=== PATIENT | female | born 1990 | race Caucasian/White ===

== ENCOUNTER → 2017-10-24 10:39 | Outpatient (CLI) | payer OTHER, SELFPAY ==
[2017-10-24 11:36] LABS: Absolute Lymphocyte Count 1.27 X10^3/ul (0.83-4.51); Absolute Neutrophil Count 8.2 X10^3/uL (2.0-7.7); Basophil# 0.01 X10^3/uL; Basophil% 0.1 % (0-1); Eosinophil# 0.07 X10^3/uL; Eosinophils% 0.7 % (0-5); Hematocrit 36.4 % (37-47); Hemoglobin 12.2 g/dl (12.0-15.0); Lymphocyte # 1.27 X10^3/ul (4.0); Lymphocyte % 12.7 % (19-41); Mean Corp Hgb Conc 33.5 g/gl (32-36); Mean Corpuscular Hgb 31.8 pg (27.0-32.0); Mean Corpuscular Volume 94.8 fL (81-99); Mean Platelet Vol. 8.7 fl (6.2-12.0); Monocyte# 0.49 X10^3/uL; Monocyte% 4.9 % (0-10); Neutrophil # 8.17 X10^3/uL (2.7-7.7); Neutrophil % 81.4 % (47-70); POSITIVE COUNT NO; POSITIVE DIFFERENTIAL NO; POSITIVE MORPHOLOGY NO; Platelet Count 303 K/mm3 (150-450); RBC Distribution Width CV 13.6 % (11.6-14.6); RBC Distribution Width SD 46.8 fl (35.1-43.9); Red Blood Count 3.84 M/mm3 (4.2-5.4)
[2017-10-24 12:04] LABS: Glucose Challenge Gest 1H 50g 160 mg/dL (70-140)
== END ==
PROVIDERS: Visit Provider Obstetrics & Gynecology
DX: Z34.02 Encounter for supervision of normal first pregnancy, second trimester (principal)
CPT/HCPCS: 36415; 82950; 85025

== ENCOUNTER → 2017-10-28 06:53 | Outpatient (CLI) | payer OTHER, SELFPAY ==
[2017-10-28 08:42] LABS: Glucose GTT-Gestation. Fasting 66 mg/dL (<105)
[2017-10-28 08:44] LABS: Glucose GTT-Gestational 1 Hr 145 mg/dL (<190)
[2017-10-28 10:29] LABS: Glucose GTT-Gestational 2 Hr 147 mg/dL (<165)
[2017-10-28 11:36] LABS: Glucose GTT-Gestational 3 Hr 125 L (<145)
== END ==
PROVIDERS: Visit Provider Obstetrics & Gynecology
DX: R73.09 Other abnormal glucose (principal)
CPT/HCPCS: 36415; 82951; 82952

== ENCOUNTER → 2017-11-14 11:58 | Outpatient (CLI) | payer OTHER, SELFPAY | PROVIDERS: Visit Provider Obstetrics & Gynecology | DX: Z34.90 Encounter for supervision of normal pregnancy, unspecified, unspecified trimester (principal); Z71.89 Other specified counseling | CPT/HCPCS: 36415 ==

== ENCOUNTER → 2017-12-12 17:36 | Outpatient (CLI) | payer OTHER, SELFPAY | PROVIDERS: Visit Provider Obstetrics & Gynecology | DX: L29.8 Other pruritus (principal) | CPT/HCPCS: 87070; 87106; 87205 ==

== ENCOUNTER → 2017-12-19 14:00 | Outpatient (CLI) | payer OTHER, SELFPAY ==
[2017-12-19 16:32] LABS: Group B Strep DNA By PCR Negative (Negative); Internal Control PASS; Probe Check PASS; Specimen Processing Control PASS
== END ==
PROVIDERS: Visit Provider Obstetrics & Gynecology
DX: Z34.90 Encounter for supervision of normal pregnancy, unspecified, unspecified trimester (principal)
CPT/HCPCS: 87081; 87653

== ENCOUNTER → 2017-12-26 10:47 | Outpatient (CLI) | payer OTHER, SELFPAY ==
--- NOTE | 2017-12-26 10:48 | US_ITS ---
STUDY: SECOND AND THIRD TRIMESTER OBSTETRICAL ULTRASOUND - LIMITED REASON FOR EXAM: Female, 27 years old. Routine survey. LMP: April 12, 2017. PRIOR ULTRASOUND: Comparison is made with prior examination dated August 28, 2017. TECHNIQUE: Transabdominal and transvaginal ultrasound evaluation was performed. FINDINGS: There is a single intrauterine fetus. The fetus is in a cephalic presentation. There is demonstrated cardiac activity with a heart rate of 156 bpm. There is a normal amniotic fluid volume. The largest amniotic fluid pocket measures 3.1 cm x 5.2 cm. The amniotic fluid index (PRESTON) is 10.2 cm. The placenta is posterior in location and is not low lying. There are Grade 3 placental changes. The cervix measures 2.5 cm in length. BIOMETRY: BPD: 9.0 cm: 36 weeks, 5 days HC: 32.3 cm: 36 weeks, 4 days AC: 32.5 cm: 36 weeks, 4 days FL: 7.0 cm: 35 weeks, 6 days Age by LMP: 36 weeks, 6 days. LIONEL by LMP: January 17, 2018. age by prior US: 37 weeks, 2 days. LIONEL by prior US: January 14, 2018. age by current US: 36 weeks, 3 days. LIONEL by current US: January 20, 2018. Estimated weight: 2907 grams, +/- 424 grams, 40 percentile. Gender: Indeterminant US/OB Limited With Biometrics IMPRESSION: Single live intrauterine gestation with a mean gestational age of 37 weeks and 2 days. The measurements obtained today fall within normal expected range. Electronically Signed: Avni Ladd MD at 12:47 EDT Tel [phone], Service support ,
== END ==
PROVIDERS: Visit Provider Obstetrics & Gynecology
DX: Z34.02 Encounter for supervision of normal first pregnancy, second trimester (principal)
CPT/HCPCS: 76816

== ENCOUNTER → 2017-12-26 14:09 | Outpatient (CLI) | payer OTHER, SELFPAY ==
[2017-12-26 14:30] LABS: Protein, Urine (Random) 19.3 mg/dL (<11.9); Protein:Creat Ratio 242 mg/g CRE (0-200)
== END ==
PROVIDERS: Visit Provider Obstetrics & Gynecology
DX: Z34.90 Encounter for supervision of normal pregnancy, unspecified, unspecified trimester (principal)
CPT/HCPCS: 82570; 84156

== ENCOUNTER 2017-12-28 12:10 | Outpatient (CLI) | payer OTHER, SELFPAY ==
[2017-12-28 12:19] VITALS: BMI 29.9
[2017-12-28 13:05] LABS: ROM Internal Control Test YES-OK TO RESULT pt. (Internal QC); ROM Patient Test Negative (Negative)
[2017-12-28 13:09] VITALS: BP 131/74; PULSE 95; RESP 18; TEMP 37.2; O2SAT 98
--- NOTE | 2017-12-29 05:34 | OB.TRI.NOTE ---
History of Present Illness Date of Service: 12/28/17 Was patient seen by the physician?: No Reason For Visit: R/O RUPTURE Date of Service: 12/28/17 Gestational age: 37 weeks History of Present Illness: questionable ROM Home Medications Medication Instructions Recorded calcium carbonate 500 mg calcium 500 mg PO BID tab 08/28/17 (1,250 mg) tablet 1 tab PO QDAY 08/28/17 vitamin,calcium,djedbvxa-wegm-wadsy acid tablet Allergies lactase [From Dairy Aid] Allergy (Mild, Verified 12/26/17 09:56) Unknown gluten Allergy (Verified 12/26/17 09:56) Unknown Physical Exam Vitals: Vital Signs Temp Pulse Resp BP Pulse Ox 99.0 F 95 18 131/74 H 98 12/28/17 13:09 12/28/17 13:09 12/28/17 13:09 12/28/17 13:09 12/28/17 13:09 NST - FHR Rate Baby A Baseline: 130-140 Variability:: Moderate Accelerations:: 15 x 15 Decelerations:: None NST Reactive:: Yes FHR Category:: Category I Uterine Activity:: no rgular Impression/Plan negative rom plus dc home labor precautions
== END 2017-12-28 13:30 | disposition home or self-care (01) ==
LOC: WPOUT 12:16 → WP 12:17
PROVIDERS: Visit Provider Obstetrics & Gynecology
DX: O47.1 False labor at or after 37 completed weeks of gestation (principal); Z3A.37 37 weeks gestation of pregnancy
CPT/HCPCS: 59025; 84112; 99218; G0378

== ENCOUNTER 2018-01-09 11:35 | Inpatient (IN) | payer OTHER, SELFPAY ==
[2018-01-09 10:49] VITALS: BMI 29.9
[2018-01-09 10:52] LABS: Protein, Urine (Random) 36.3 mg/dL (<11.9); Protein:Creat Ratio 231 mg/g CRE (0-200)
[2018-01-09 11:28] LABS: Absolute Lymphocyte Count 1.22 X10^3/ul (0.83-4.51); Absolute Neutrophil Count 8.3 X10^3/uL (2.0-7.7); Basophil# 0.01 X10^3/uL; Basophil% 0.1 % (0-1); Eosinophil# 0.04 X10^3/uL; Eosinophils% 0.4 % (0-5); Hematocrit 37.3 % (37-47); Hemoglobin 12.8 g/dl (12.0-15.0); Lymphocyte # 1.22 X10^3/ul (4.0); Lymphocyte % 11.8 % (19-41); Mean Corp Hgb Conc 34.3 g/gl (32-36); Mean Corpuscular Hgb 32.1 pg (27.0-32.0); Mean Corpuscular Volume 93.5 fL (81-99); Mean Platelet Vol. 9.7 fl (6.2-12.0); Monocyte# 0.76 X10^3/uL; Monocyte% 7.3 % (0-10); Neutrophil # 8.33 X10^3/uL (2.7-7.7); Neutrophil % 80.2 % (47-70); Platelet Count 305 K/mm3 (150-450); RBC Distribution Width CV 13.8 % (11.6-14.6); RBC Distribution Width SD 45.2 fl (35.1-43.9); Red Blood Count 3.99 M/mm3 (4.2-5.4); White Blood Count 10.4 K/mm3 (4.4-11.0)
[2018-01-09 11:34] LABS: ROM Internal Control Test YES-OK TO RESULT pt. (Internal QC)
[2018-01-09 11:36] LABS: ROM Patient Test POSITIVE (Negative)
[2018-01-09 11:36] LABS: POSITIVE COUNT NO; POSITIVE DIFFERENTIAL NO; POSITIVE MORPHOLOGY NO
[2018-01-09 11:59] LABS: ALB/GLOB Ratio 0.6 RATIO (0.9-2.4); AST(SGOT) 13 U/L (15-37); Alanine Aminotransfer ALT/SGPT 12 U/L (13-56); Albumin, Serum 2.4 g/dL (3.2-5.0); Alkaline Phosphatase 135 U/L (45-117); Anion Gap 9 (5-15); BUN 7 mg/dL (7-18); BUN/Creat Ratio 8.3 RATIO (10-20); Calcium,Total 8.8 mg/dL (8.5-10.1); Chloride 104 mmol/L (98-107); Creatinine, Serum 0.84 mg/dL (0.55-1.02); EST Glomerular Filtration Rate 84 mL/min (>60); Est Glom Filt Rate - Afr Amer 102 mL/min (>60); Estimated Creatinine Clearance 88.92 ml/min; Globulin 4.3 g/dL (2.2-4.2); Glucose 109 mg/dL (74-106); LDH 134 U/L (84-246); Potassium 3.4 mmol/L (3.5-5.1); Protein, Total 6.7 g/dL (6.4-8.2); Sodium Level 136 mmol/L (136-145)
[2018-01-09] MEDS: Lactated Ringers 1,000 ML 50 ML IV ×3 (12:15→21:41)
[2018-01-09] MEDS: Oxytocin 30 units/NS 500 ml 30 UNITS/500 ML IV.SOLN IV (13:20)
--- NOTE | 2018-01-09 17:30 | PCM.PN.BLA ---
Progress Note LABOR PROGRESS NOTE Contractions intensify, but remain mild. AVSS GEN - NAD, AAO x 3 SVE deferred FHR 150, moderate variability, + accelerations, no decelerations TOCO - irregularly traced when patient walking, however 4/10 at rest A/P: 27yo G1 @ 38 6/7wga with PROM, pitocin induction, Cat I FHR -No si/sx infection -Continue pitocin as tolerated by mother and fetus
--- NOTE | 2018-01-09 17:55 | PCM.HP.STD ---
Problem List (1) 38 weeks gestation of Status: Acute (2) Rupture of membranes with clear amniotic fluid Status: Acute History of Present Illness Date of Admission: 01/09/18 Chief Complaint: Sent from office for elevated blood pressure and headache, has leaking of fluid also The patient is a 27 year old F 1 para 0 at 38 6/7 weeks gestation (LIONEL 01/17/18) by LMP 04/12/17 admitted with spontaneous rupture of membranes. She was sent from office for headache and elevated blood pressure 141/78 with trace proteinuria.. On arrival, she reported leaking of fluid with uncertain time of rupture. The ROM plus was positive. She reported mild frontal headache without vision changes, abdominal pain, shortness of breath. + FM. No vaginal bleeding. She had mild contractions. No other complaints. Allergies lactase [From Dairy Aid] Allergy (Mild, Verified 01/02/18 10:19) Unknown gluten Allergy (Verified 01/02/18 10:19) Unknown PFSH PFSH Family History Father Cancer liver Grandmother Breast cancer Social History Smoking Status: Never smoker alcohol intake: never substance use type: does not use additional social history: to S[facility] Pregancy History 1 Elective abortions Hx Para Spontaneous abortions Hx # Term Pregnancies Ectopic pregnancies Hx # Pregnancies Multiple births # of living children Labs Diagnostics Labs Obstetrics Ultrasound 12/26/17 - EFW 2901g Group B Strep DNA Negative (Negative) 12/19/17 HIV non-reactive RPR non-reactive HBsAg neg Gonorrhea neg Chlamydia neg Rubella immune OB History - copied from office chart LIONEL Calculator Estimated Delivery Date 01/17/18 Based on LMP (certain) 04/12/17 Current WG 38w 6d Number 1 Expected Delivery Route/Plan Specific Issue/Plans Mini chart given Declines flu vaccine larc form signed labor support person: moms and sasha (rupinder ordonez) pain management: minimal intervention cut cord/dad catch: yes yes : yes control planned: undecided special requests: Last Menstral Period: 04/12/17 Zika: Travel to [facility]. Zika virus screening: Negative : No Initial Weight: Not Recorded Date EGA Weight BP Urine Prot Glucose FHR FuHt Pres Mov CTX Dilation Effaced St Visit Note Provider Comments 12/21/17 19w 5d 154 lb 8 oz 110/67 Negative Negative 146 Absent absent Doing well some heartburn. Anatomy US today 09/26/17 23w 6d 159 lb 4 oz 124/69 Negative Negative 145 24 Active absent Doing well some heartburn. Anatomy US today doing well no complaints 10/24/17 27w 6d 167 lb 4 oz 118/66 140 28 Active absent Doing well some heartburn. Anatomy US today no vb lof good fm no regular ctx planning travel [place]- discussed with patient zika avoidance 11/14/17 30w 6d 167 lb 130/70 135 30 Active absent no vb lof good fm no regular ctx planning travel [place]- discussed with patient zika avoidance no vb lof good fm no regular ctx. no symptoms of zika but discussed and wishes testing since travel to endemic area. 11/28/17 32w 6d 169 lb 6 oz 112/69 Negative Negative 135 33 Active absent no vb lof good fm no regular ctx planning travel [place]- discussed with patient zika avoidance no vb lof good fm no regualr ctx 12/12/17 34w 6d 174 lb 136/78 Trace Negative 145 35 Cephalic absent 0 no vb lof good fm no regular ctxco increased itching and discharge. co sciatic pain and pelvic discomfort at times 12/19/17 35w 6d 175 lb 2 oz 127/70 130 36 Cephalic Active absent 0 no vb lof good fm no regualr ctx but had some cramping last night 12/26/17 36w 6d 178 lb 8 oz 120/68 160 36 Cephalic Active absent 1 0 no vb lof good fm no egular ctx 01/02/18 37w 6d 179 lb 4 oz 133/84 Trace Negative 143 37 Cephalic Active occasional 1.30 -4 Occa CTX, No LOF, VB. Good FM 01/09/18 38w 6d 180 lb 2 oz 141/78 Trace 100 g/dL occasional Past Medical History Allergies lactase [From Dairy Aid] Allergy (Mild, Verified 01/09/18 10:51) Unknown gluten Allergy (Verified 01/09/18 10:51) Unknown Home Medications: Ambulatory Orders Medication Instructions Recorded 1 tab PO QDAY 08/28/17 vitamin,calcium,vfiyvghy-oqmw-orjfk acid tablet diphenhydramine 25 mg capsule 25 mg PO QHS PRN 01/09/18 famotidine 20 mg tablet 20 mg PO QDAY 01/09/18 Surgical History: no surgical history Psychiatric History: No pertinent psych hx Smoking Status: Never smoker Review of Systems Constitutional: Denies: Chills, Fever Eyes: Denies: Blurred vision, Vision Change Cardiovascular: Denies: Chest Pain, Edema Respiratory: Denies: Shortness of Breath Gastrointestinal: Denies: Abdominal Pain, Nausea, Vomiting Gynecological: Denies: Vaginal bleeding Neurological: Reports: Headaches VTE Information - Inpt Only VTE Present on Admission: No Patient Problems: Active and Suspected Problems (Last Reviewed 01/09/18 @ 10:10 by Gabby Holland) 38 weeks gestation of (Acute) Rupture of membranes with clear amniotic fluid (Acute) Objective: AVSS - Physical Exam General: Alert, Oriented x3, Cooperative, No apparent distress HEENT: Atraumatic, Normocephalic Lungs: Normal air movement Abdomen: Soft, Non Tender, Non-Distended, Gravid Extremities: No Calf Tenderness, - - trace LE edema Skin: No rashes Neurological: Neuro grossly intact, - - +1 b/l DTRs Psych/Mental Status: Normal Affect, Appropriate, Alert and oriented to time, place, person, mood and affect Weight: 81.6 kg Body Mass Index (BMI) 29.9 Intake and Output for Last 24 Hours 01/07/18 01/08/18 01/09/18 23:59 23:59 23:59 Intake Total 400 / 400 Output Total 301 / 301 Balance 99 / 99 Laboratory Tests Past 24 Hrs 01/09/18 01/09/18 01/09/18 10:00 10:00 11:10 WBC 10.4 RBC 3.99 L Hgb 12.8 Hct 37.3 MCV 93.5 MCH 32.1 H MCHC 34.3 RDW 13.8 RDW Differential 45.2 H Plt Count 305 MPV 9.7 Immature Gran % (Auto) 0.200 Neut % (Auto) 80.2 H Lymph % (Auto) 11.8 L [place] % (Auto) 7.3 Eos % (Auto) 0.4 Baso % (Auto) 0.1 Absolute Neuts (auto) 8.3 H Absolute Lymphs (auto) 1.22 Total Counted Not Reportable Sodium Potassium Chloride Carbon Dioxide Anion Gap BUN Creatinine Estim Creat Clear Calc Est GFR (MDRD) Af Amer Est GFR (MDRD) Non-Af BUN/Creatinine Ratio Glucose Uric Acid Calcium Total Bilirubin AST ALT Alkaline Phosphatase Lactate Dehydrogenase Total Protein Albumin Globulin Albumin/Globulin Ratio U Random Total Protein 36.3 H Cancelled Urine Creatinine 157.00 Cancelled Protein/Creatinin Ratio 231 H Cancelled Vag Amniotic Fld Detect Blood Type Antibody Screen 01/09/18 01/09/18 01/09/18 11:10 11:10 11:15 WBC RBC Hgb Hct MCV MCH MCHC RDW RDW Differential Plt Count MPV Immature Gran % (Auto) Neut % (Auto) Lymph % (Auto) [place] % (Auto) Eos % (Auto) Baso % (Auto) Absolute Neuts (auto) Absolute Lymphs (auto) Total Counted Sodium 136 Potassium 3.4 L Chloride 104 Carbon Dioxide 23.0 Anion Gap 9 BUN 7 Creatinine 0.84 Estim Creat Clear Calc 88.92 Est GFR (MDRD) Af Amer 102 Est GFR (MDRD) Non-Af 84 BUN/Creatinine Ratio 8.3 L Glucose 109 H Uric Acid 6.0 Calcium 8.8 Total Bilirubin 0.20 AST 13 L ALT 12 L Alkaline Phosphatase 135 H Lactate Dehydrogenase 134 Total Protein 6.7 Albumin 2.4 L Globulin 4.3 H Albumin/Globulin Ratio 0.6 L U Random Total Protein Urine Creatinine Protein/Creatinin Ratio Vag Amniotic Fld Detect POSITIVE H Blood Type B POSITIVE Antibody Screen NEGATIVE Assessment/Plan Active and Suspected Problems (Last Reviewed 01/09/18 @ 10:10 by Gabby Holland) 38 weeks gestation of (Acute) Rupture of membranes with clear amniotic fluid (Acute) 27yo G1 @ 38 6/7wga with PROM, Cat I FHR - no evidence of preeclampsia -Admit to L&D -Clear liquids -Risks, benefits and alternatives of labor reviewed including potential for bleeding complications, possibly requiring dilation and curettage or hysterectomy, infection, internal or contractions monitoring, VTE, need for vacuum delivery or delivery with review of risks including bowel, bladder injury and scarring. Consents signed. -Recommend pitocin given unknown time of membrane rupture. Reviewed pitocin indications, how use, potential for tachysystole or tetanic contractions with FHR changes. -Pt refused headache medication reporting mild severity. Uric acid 6.0, otherwise, labs wnl. Discussed with patient exam findings and lab results not c/w preeclampsia, nor gestational HTN at this time given simgle elevated BP. Serial BPs here wnl. Sx of preeclampsia reviewed. Will monitor for emergence of preeclampsia. -GBS negative -Patient given opportunity to ask questions and questions answered to her satisfaction. -Maternal and statuses reassuring/
--- NOTE | 2018-01-09 18:05 | HP.PCM_ITS ---
Problem List (1) 38 weeks gestation of Status: Acute (2) Rupture of membranes with clear amniotic fluid Status: Acute History of Present Illness Date of Admission: 01/09/18 Chief Complaint: Sent from office for elevated blood pressure and headache, has leaking of fluid also The patient is a 27 year old F 1 para 0 at 38 6/7 weeks gestation (LIONEL ) by LMP 04/12/17 admitted with spontaneous rupture of membranes. She was sent from office for headache and elevated blood pressure 141/78 with trace proteinuria.. On arrival, she reported leaking of fluid with uncertain time of rupture. The ROM plus was positive. She reported mild frontal headache without vision changes, abdominal pain, shortness of breath. + FM. No vaginal bleeding. She had mild contractions. No other complaints. Allergies lactase [From Dairy Aid] Allergy (Mild, Verified 01/02/18 10:19) Unknown gluten Allergy (Verified 01/02/18 10:19) Unknown PFSH PFSH Family History Father Cancer liver Grandmother Breast cancer Social History Smoking Status: Never smoker alcohol intake: never substance use type: does not use additional social history: to Sasha Pregancy History 2 1 Elective abortions Hx Para Spontaneous abortions Hx # Term Pregnancies Ectopic pregnancies Hx # Pregnancies Multiple births # of living children Labs Diagnostics Labs Obstetrics Ultrasound 12/26/17 - EFW 2901g Group B Strep DNA Negative (Negative) 12/19/17 HIV non-reactive RPR non-reactive HBsAg neg Gonorrhea neg Chlamydia neg Rubella immune OB History - copied from office chart LIONEL Calculator 2 Estimated Delivery Date 01/17/18 Based on LMP (certain) 04/12/17 Current WG 38w 6d Number 1 Expected Delivery Route/Plan Specific Issue/Plans Mini chart given Declines flu vaccine larc form signed labor support person: moms and sasha (rupinder ordonez) pain management: minimal intervention cut cord/dad catch: yes yes : yes control planned: undecided special requests: Last Menstral Period: 04/12/17 Zika: Travel to [facility]. Zika virus screening: Negative : No Initial Weight: Not Recorded Date EGA Weight BP Urine Prot Glucose FHR FuHt Pres Mov CTX Dilation Effaced St Visit Note Provider Comments 08/28/17 19w 5d 154 lb 8 oz 110/67 Negative Negative 146 Absent absent Doing well some heartburn. Anatomy US today 09/26/17 23w 6d 159 lb 4 oz 124/69 Negative Negative 145 24 Active absent Doing well some heartburn. Anatomy US today doing well no complaints 10/24/17 27w 6d 167 lb 4 oz 118/66 140 28 Active absent Doing well some heartburn. Anatomy US today no vb lof good fm no regular ctx [place]- discussed with patient zika avoidance 11/14/17 30w 6d 167 lb 130/70 135 30 Active absent no vb lof good fm no regular ctx planning [place]- discussed with patient zika avoidance no vb lof good fm no regular ctx. no symptoms of zika but discussed and wishes testing since travel to endemic [place]. 11/28/17 32w 6d 169 lb 6 oz 112/69 Negative Negative 135 33 Active absent no vb lof good fm no regular ctx planning travel [place]- discussed with patient zika avoidance no vb lof good fm no regualr ctx 12/12/17 34w 6d 174 lb 136/78 Trace Negative 145 35 Cephalic absent 0 no vb lof good fm no regular ctxco increased itching and discharge. co sciatic pain and pelvic discomfort at times 12/19/17 35w 6d 175 lb 2 oz 127/70 130 36 Cephalic Active absent 0 no vb lof good fm no regualr ctx but had some cramping last night 12/26/17 36w 6d 178 lb 8 oz 120/68 160 36 Cephalic Active absent 1 0 no vb lof good fm no egular ctx 01/02/18 37w 6d 179 lb 4 oz 133/84 Trace Negative 143 37 Cephalic Active occasional 1.30 -4 Occa CTX, No LOF, VB. Good FM 01/09/18 38w 6d 180 lb 2 oz 141/78 Trace 100 g/dL occasional Past Medical History Allergies lactase [From Dairy Aid] Allergy (Mild, Verified 01/09/18 10:51) Unknown gluten Allergy (Verified 01/09/18 10:51) Unknown Home Medications: Ambulatory Orders Medication Instructions Recorded 1 tab PO QDAY 08/28/17 vitamin,calcium,efkazqgr-tudd-ufgoj acid tablet diphenhydramine 25 mg capsule 25 mg PO QHS PRN 01/09/18 famotidine 20 mg tablet 20 mg PO QDAY 01/09/18 Surgical History: no surgical history Psychiatric History: No pertinent psych hx Smoking Status: Never smoker Review of Systems Constitutional: Denies: Chills, Fever Eyes: Denies: Blurred vision, Vision Change Cardiovascular: Denies: Chest Pain, Edema Respiratory: Denies: Shortness of Breath Gastrointestinal: Denies: Abdominal Pain, Nausea, Vomiting Gynecological: Denies: Vaginal bleeding Neurological: Reports: Headaches VTE Information - Inpt Only VTE Present on Admission: No Patient Problems: Active and Suspected Problems (Last Reviewed 01/09/18 @ 10:10 by Gabby Holland) 38 weeks gestation of (Acute) Rupture of membranes with clear amniotic fluid (Acute) Objective: AVSS - Physical Exam General: Alert, Oriented x3, Cooperative, No apparent distress HEENT: Atraumatic, Normocephalic Lungs: Normal air movement Abdomen: Soft, Non Tender, Non-Distended, Gravid Extremities: No Calf Tenderness, - - trace LE edema Skin: No rashes Neurological: Neuro grossly intact, - - +1 b/l DTRs Psych/Mental Status: Normal Affect, Appropriate, Alert and oriented to time, place, person, mood and affect Weight: 81.6 kg Body Mass Index (BMI) 29.9 Intake and Output for Last 24 Hours 01/07/18 01/08/18 01/09/18 23:59 23:59 23:59 Intake Total 400 / 400 Output Total 301 / 301 Balance 99 / 99 Laboratory Tests Past 24 Hrs 01/09/18 01/09/18 01/09/18 10:00 10:00 11:10 WBC 10.4 RBC 3.99 L Hgb 12.8 Hct 37.3 MCV 93.5 MCH 32.1 H MCHC 34.3 RDW 13.8 RDW Differential 45.2 H Plt Count 305 MPV 9.7 Immature Gran % (Auto) 0.200 Neut % (Auto) 80.2 H Lymph % (Auto) 11.8 L [place] % (Auto) 7.3 Eos % (Auto) 0.4 Baso % (Auto) 0.1 Absolute Neuts (auto) 8.3 H Absolute Lymphs (auto) 1.22 Total Counted Not Reportable Sodium Potassium Chloride Carbon Dioxide Anion Gap BUN Creatinine Estim Creat Clear Calc Est GFR (MDRD) Af Amer Est GFR (MDRD) Non-Af BUN/Creatinine Ratio Glucose Uric Acid Calcium Total Bilirubin AST ALT Alkaline Phosphatase Lactate Dehydrogenase Total Protein Albumin Globulin Albumin/Globulin Ratio U Random Total Protein 36.3 H Cancelled Urine Creatinine 157.00 Cancelled Protein/Creatinin Ratio 231 H Cancelled Vag Amniotic Fld Detect Blood Type Antibody Screen 01/09/18 01/09/18 01/09/18 11:10 11:10 11:15 WBC RBC Hgb Hct MCV MCH MCHC RDW RDW Differential Plt Count MPV Immature Gran % (Auto) Neut % (Auto) Lymph % (Auto) [place] % (Auto) Eos % (Auto) Baso % (Auto) Absolute Neuts (auto) Absolute Lymphs (auto) Total Counted Sodium 136 Potassium 3.4 L Chloride 104 Carbon Dioxide 23.0 Anion Gap 9 BUN 7 Creatinine 0.84 Estim Creat Clear Calc 88.92 Est GFR (MDRD) Af Amer 102 Est GFR (MDRD) Non-Af 84 BUN/Creatinine Ratio 8.3 L Glucose 109 H Uric Acid 6.0 Calcium 8.8 Total Bilirubin 0.20 AST 13 L ALT 12 L Alkaline Phosphatase 135 H Lactate Dehydrogenase 134 Total Protein 6.7 Albumin 2.4 L Globulin 4.3 H Albumin/Globulin Ratio 0.6 L U Random Total Protein Urine Creatinine Protein/Creatinin Ratio Vag Amniotic Fld Detect POSITIVE H Blood Type B POSITIVE Antibody Screen NEGATIVE Assessment/Plan Active and Suspected Problems (Last Reviewed 01/09/18 @ 10:10 by Gabby Holland) 38 weeks gestation of (Acute) Rupture of membranes with clear amniotic fluid (Acute) 27yo G1 @ 38 6/7wga with PROM, Cat I FHR - no evidence of preeclampsia -Admit to L&D -Clear liquids -Risks, benefits and alternatives of labor reviewed including potential for bleeding complications, possibly requiring dilation and curettage or hysterectomy, infection, internal or contractions monitoring, VTE, need for vacuum delivery or delivery with review of risks including bowel, bladder injury and scarring. Consents signed. -Recommend pitocin given unknown time of membrane rupture. Reviewed pitocin indications, how use, potential for tachysystole or tetanic contractions with FHR changes. -Pt refused headache medication reporting mild severity. Uric acid 6.0, otherwise, labs wnl. Discussed with patient exam findings and lab results not c/ w preeclampsia, nor gestational HTN at this time given simgle elevated BP. Serial BPs here wnl. Sx of preeclampsia reviewed. Will monitor for emergence of preeclampsia. -GBS negative -Patient given opportunity to ask questions and questions answered to her satisfaction. -Maternal and statuses reassuring/
--- NOTE | 2018-01-09 19:46 | PCM.PN.BLA ---
Progress Note LABOR PROGRESS NOTE Contractions remain mild. AVSS GEN - NAD, AAO x 3 FHR 140, moderate variability, + accelerations, no decelerations TOCO 4/10 min SVE 2.5/80/-2, anterior and moderate with forebag palpable A/P: 27yo G1 @ 38 6/7wga with ROM on pitocin, Cat I FHR -Amniotomy performed with clear fluid -No sx of infection however > 24 hours of rupture of membranes. Will plan for prophylactic antibiotics. Rx Ampicillin. -Maternal and status reassuring.
[2018-01-09] MEDS: Ondansetron 4 MG/2 ML Vial IV (22:55)
[2018-01-09 23:25] LABS: Mucous, Urine 0 SEEN /hpf (<or=2+)
[2018-01-09 23:30] LABS: Color, Urine Yellow (Yellow); Glucose, Dipstick Normal (Normal); Ketone-Dipstick 50 mg/dl (Negative); Leukocyte Esterase-Dipstick 25 /ul (Negative); Nitrite-Dipstick Negative (Negative); Occult Blood-Urine 250 /ul (Negative); Protein-Dipstick 15 mg/dl (Negative); Specific Gravity, Urine 1.015 (1.002-1.030); Urine Bilirubin Dipstick Negative (Negative); Urine Clarity Cloudy (Clear); Urine Urobilinogen Normal (Normal); Urine pH 6.5 (5.0 - 8.0)
--- NOTE | 2018-01-09 23:47 | PLAC_PTH ---
PATIENT: AUDRA SALTER LOC: [facility] U#:[id number] AGE/SX: 27/F ROOM: [facility] RE01/09/[address]: Dr. Monica Faustin MD : [id number] BED: 1 DIS: 01/11/2018 SPEC #: [id number] RECD: 01/10/18 04:19 STATUS: RAHEL REMario #: [id number] [place]: 01/09/18 23:[address]: Monica Lowry DEPT: SURGICAL PATHOLOGY RECD BY: Cortez Brush ENTERED: 01/12/18 12:12 SP TYPE: PLACENTA OT DR: No Primary Care Phys LAYLA Mayberry Tissues: Placenta, NOS Procedures: Surgery Specimen Level V HEADER OPERATION: Vaginal delivery PRE-OP DIAGNOSIS: 38 6/7wga, prolonged rupture of membranes, labor TISSUE SUBMITTED: Placenta MICROSCOPIC DIAGNOSIS Placenta: Placental disc - third trimester placenta (418 gm). - Focal chronic villitis of unknown etiology. Membranes - no pathologic diagnosis. Umbilical cord - three blood vessels and no pathologic diagnosis. [place] 01/13/18 MICROSCOPIC DESCRIPTION Slides are reviewed. GROSS DESCRIPTION SPECIMEN: PLACENTA / CLINICAL INFORMATION: A. Weight: 3.333 kg B. Gestational Age: 39 weeks C. Sex: Female PLACENTAL WEIGHT (POST FIXATION): 418 gm PLACENTAL DIMENSIONS: 20 x 17 x 2.5 cm PLACENTAL SHAPE: Usual ovoid PLACENTAL WEIGHT FOR GESTATIONAL AGE: Within 10-99th percentile MEMBRANES - Present A. Insertion: Marginal B. Site of rupture from edge: 6 cm from edge of placental disc C. Color of membrane: Enrique-hurd and mucoidy D. Abnormalities: None UMBILICAL CORD - Present A. Color: Enrique-hurd B. Insertion: Central C. Length: 34 cm D. Diameter: 1 cm E. Number of vessels: Three F. Abnormalities: None PLACENTAL DISC - Present A. Color of surface: Enrique-hurd B. surface abnormalities: None C. Maternal cotyledons: Intact with minimal tears D. Attached retro placental clot: No clot E. Cut surface: Dark red and spongy F. Lesions: None G. Separate clot: Absent SECTIONS SUBMITTED: 1. Membrane roll 2. Cord, maternal end 3. Cord, end 4. Placental disc, and maternal surfaces 5. Placental disc, and maternal surfaces 6. Placental disc, and maternal surfaces [place] 01/12/18 TC:3 CPT: 87991
[2018-01-09] MEDS: Oxytocin 30 units/NS 500 ml 30 UNITS/500 ML IV.SOLN 334 UNITS IV (23:54)
[2018-01-09 23:56] LABS: Bacteria RARE /hpf (None Seen); Red Blood Cells-Urine 10-25 SEEN /hpf (0-5); Squamous Epithelial Cells - UA 5-10 SEEN /hpf (5-10); White Blood Cells 0-5 SEEN /hpf (0-5)
--- NOTE | 2018-01-10 00:17 | PCM.OB.VAG ---
- Problem List (1) 38 weeks gestation of Status: Acute (2) Rupture of membranes with clear amniotic fluid Status: Acute Vaginal Delivery Maternal Presentation: Spontaneous Rupture of Membranes Method of Induction: Pitocin Medical Reason for Induction: Premature Rupture of Membranes Amniotic Membrane Rupture Type: Spontaneous at home Rupture of Membrane time: 01/11/18 Amniotic Fluid Description: Clear Final LIONEL: 01/17/18 Final LIONEL Source: US <20 weeks Gestational age: 39 Weeks and 0 Days Date of Procedure: 01/09/18 Pre-Operative Diagnosis: 38 6/7 wga, SROM, prolonged rupture of membranes Post-Operative Diagnosis: 38 6/7 wga, SROM, prolonged rupture of membranes Surgery/ Procedure Performed: Spontaneous Vaginal Delivery Type of Anesthesia: Local with 1% lidocaine Description of Procedure: On my arrival, E FD/+4 station and . FHR at 100s and preceded by series of recurrent decelerations with sandy to 70-80s bpm. The patient pushed to deliver a vigorous female in JACK. The was placed over the maternal abdomen and further attended by nursery personnel. The cord was doubly clamped and cut at cessation of cord pulsation. The placenta delivered spontaneously and appeared intact on inspection. A second degree perineal laceration was repaired with 3-0 Vicryl Rapide after local injection of total of 15cc of 1% lidocaine. There was good hemostasis. Sponge counts were correct x 2. Presentation: Vertex Placental Delivery Description: Spontaneous Placenta Disposition: [facility] Cord Vessel Description: 3 Vessels Nuchal Cord Compression: Without compression Cord Entanglement: None Estimated Blood Loss: 300 A gender: Female (1 minute): 8 (5 minute): 8 Episiotomy Description: None Laceration: Midline, Perineal Extension/lac, Vaginal Extension/lac, 2nd degree Medications given after delivery: IV Pitocin Complications: None
[2018-01-10] MEDS: Oxytocin 30 units/NS 500 ml 30 UNITS/500 ML IV.SOLN 167 UNITS IV (00:24)
--- NOTE | 2018-01-10 00:29 | DCINST_ITS ---
Discharge Diet: No Restrictions Discharge Activity: Return to Normal Activity, May Shower May resume sexual activity in: 6 weeks Lifting Restrictions: 10-20 lb Call your doctor if you observe: Fever of 101 or Higher, Inability to urinate, Inability to have a bowel movement, Using more than one pad per hour, Shortness of breath, Chest pain, Calf discomfort, Uncontrolled pain Suture Line Care: Avoid Pulling/Pushing Cleanse incision/area with: Soap & Water Additional Instructions: If you experience any of the following, contact your healthcare provider. * Bleeding that soaks a pad every hour for 2 hours * Fever 100.4 or higher * Unrelieved incision or abdominal pain * Swelling, redness, discharge or bleeding from your incision or episiotomy site * Your incision begins to separate * Problems urinating (including inability to urinate or burning while urinating) . * Visual changes * Severe headache * Flu-like symptoms * Pain or redness in one of both of your breasts * Pain, warmth, tenderness or swelling in your legs, especially the calf area * Frequent nausea and vomiting * Symptoms of depression or anxiety If you experience any of the following, call 911 or go to the nearest Emergency Room. * Chest pain * Problems breathing * Seizure activity * Partial or complete paralysis of a body part, slurred speech, weakness or drooping of the face, or a sudden inability to walk or hold your balance Allergies/Adverse Reactions: Allergies lactase [From Dairy Aid] Allergy (Mild, Verified 01/09/18 10:51) Unknown gluten Allergy (Verified 01/09/18 10:51) Unknown lactose Adverse Reaction (Verified 01/11/18 09:41) Unknown Medications to take at Discharge vitamin,calcium,bozqaqjf-bhbz-edafh acid tablet 1 tab PO QDAY 08/28/17 famotidine 20 mg tablet 20 mg PO QDAY 01/09/18 Docusate Sodium [Colace] 100 mg PO BID PRN PRN #60 cap 01/10/18 Ibuprofen 600 mg PO TID PRN #30 tab 01/10/18 The following prescriptions were given: Docusate Sodium [Colace] 100 mg PO BID PRN PRN #60 cap PRN Reason: Constipation Ibuprofen 600 mg PO TID PRN #30 tab PRN Reason: Pain Orders to be completed after discharge: Electric breast pump Location: None Selected Please Follow Up With: Anel Mckoy MD When: 6 weeks Primary Care Physician: Care Physician,No Primary [Primary Care Provider] -
[2018-01-10] MEDS: 0.9% Saline Lock 10 ML Syringe IV (01:34)
[2018-01-10 03:14] VITALS: BP 124/86; PULSE 119; RESP 16; TEMP 36.8; O2SAT 97
[2018-01-10 05:32] LABS: Pathology Specimen OB SEE PATHOLOGY REPORT
[2018-01-10 07:45] VITALS: BP 123/63; PULSE 95; RESP 16; TEMP 37; O2SAT 98
--- NOTE | 2018-01-10 09:26 | PCM.PN.OB ---
Patient Problems: Active and Suspected Problems (Last Reviewed 01/09/18 @ 10:10 by Gabby Holland) (spontaneous vaginal delivery) (Acute) 38 weeks gestation of (Acute) Rupture of membranes with clear amniotic fluid (Acute) Subjective: No issues overnight. She is sore. Infant nurses well when latches. Working on organization for . Madison is sore today. Denies heavy lochia. Objective: AVSS - Physical Exam General: Alert, Oriented x3, Cooperative, No apparent distress HEENT: Atraumatic, Normocephalic Lungs: Clear to auscultation, Normal air movement Cardiovascular: Regular rate, Regular Rhythm Abdomen: Soft, Non Tender, Non-Distended, - - Fundus firm and nontender at umbilicus, lochia moderate Extremities: No edema, No Calf Tenderness Neurological: Neuro grossly intact Psych/Mental Status: Normal Affect, Appropriate, Alert and oriented to time, place, person, mood and affect Vital Signs Temp Pulse Resp BP Pulse Ox 98.6 F 95 16 123/63 H 98 01/10/18 07:45 01/10/18 07:45 01/10/18 07:45 01/10/18 07:45 01/10/18 07:45 Oxygen Delivery Method Room Air Weight: 81.6 kg Body Mass Index (BMI) 29.9 Intake and Output for Last 24 Hours 01/08/18 01/09/18 01/10/18 23:59 23:59 23:59 Intake Total 1790 / 1790 1539 / 1539 Output Total 902 / 902 400 / 400 Balance 888 / 888 1139 / 1139 Laboratory Tests Past 24 Hrs 01/09/18 01/09/18 01/09/18 10:00 10:00 11:10 WBC 10.4 RBC 3.99 L Hgb 12.8 Hct 37.3 MCV 93.5 MCH 32.1 H MCHC 34.3 RDW 13.8 RDW Differential 45.2 H Plt Count 305 MPV 9.7 Immature Gran % (Auto) 0.200 Neut % (Auto) 80.2 H Lymph % (Auto) 11.8 L Towner % (Auto) 7.3 Eos % (Auto) 0.4 Baso % (Auto) 0.1 Absolute Neuts (auto) 8.3 H Absolute Lymphs (auto) 1.22 Total Counted Not Reportable Sodium Potassium Chloride Carbon Dioxide Anion Gap BUN Creatinine Estim Creat Clear Calc Est GFR (MDRD) Af Amer Est GFR (MDRD) Non-Af BUN/Creatinine Ratio Glucose Uric Acid Calcium Total Bilirubin AST ALT Alkaline Phosphatase Lactate Dehydrogenase Total Protein Albumin Globulin Albumin/Globulin Ratio Urine Color Urine Clarity Urine pH Ur Specific [place] Urine Protein Urine Glucose (UA) Urine Ketones Urine Occult Blood Urine Nitrite Urine Bilirubin Urine Urobilinogen Ur Leukocyte Esterase Urine RBC Urine WBC Ur Squamous Epith Cells Urine Bacteria Urine Mucus U Random Total Protein 36.3 H Cancelled Urine Creatinine 157.00 Cancelled Protein/Creatinin Ratio 231 H Cancelled Vag Amniotic Fld Detect Blood Type Antibody Screen 01/09/18 01/09/18 01/09/18 11:10 11:10 11:15 WBC RBC Hgb Hct MCV MCH MCHC RDW RDW Differential Plt Count MPV Immature Gran % (Auto) Neut % (Auto) Lymph % (Auto) Towner % (Auto) Eos % (Auto) Baso % (Auto) Absolute Neuts (auto) Absolute Lymphs (auto) Total Counted Sodium 136 Potassium 3.4 L Chloride 104 Carbon Dioxide 23.0 Anion Gap 9 BUN 7 Creatinine 0.84 Estim Creat Clear Calc 88.92 Est GFR (MDRD) Af Amer 102 Est GFR (MDRD) Non-Af 84 BUN/Creatinine Ratio 8.3 L Glucose 109 H Uric Acid 6.0 Calcium 8.8 Total Bilirubin 0.20 AST 13 L ALT 12 L Alkaline Phosphatase 135 H Lactate Dehydrogenase 134 Total Protein 6.7 Albumin 2.4 L Globulin 4.3 H Albumin/Globulin Ratio 0.6 L Urine Color Urine Clarity Urine pH Ur Specific [place] Urine Protein Urine Glucose (UA) Urine Ketones Urine Occult Blood Urine Nitrite Urine Bilirubin Urine Urobilinogen Ur Leukocyte Esterase Urine RBC Urine WBC Ur Squamous Epith Cells Urine Bacteria Urine Mucus U Random Total Protein Urine Creatinine Protein/Creatinin Ratio Vag Amniotic Fld Detect POSITIVE H Blood Type B POSITIVE Antibody Screen NEGATIVE 01/09/18 22:30 WBC RBC Hgb Hct MCV MCH MCHC RDW RDW Differential Plt Count MPV Immature Gran % (Auto) Neut % (Auto) Lymph % (Auto) Towner % (Auto) Eos % (Auto) Baso % (Auto) Absolute Neuts (auto) Absolute Lymphs (auto) Total Counted Sodium Potassium Chloride Carbon Dioxide Anion Gap BUN Creatinine Estim Creat Clear Calc Est GFR (MDRD) Af Amer Est GFR (MDRD) Non-Af BUN/Creatinine Ratio Glucose Uric Acid Calcium Total Bilirubin AST ALT Alkaline Phosphatase Lactate Dehydrogenase Total Protein Albumin Globulin Albumin/Globulin Ratio Urine Color Yellow Urine Clarity Cloudy Urine pH 6.5 Ur Specific [place] 1.015 Urine Protein 15 H Urine Glucose (UA) Normal Urine Ketones 50 H Urine Occult Blood 250 H Urine Nitrite Negative Urine Bilirubin Negative Urine Urobilinogen Normal Ur Leukocyte Esterase 25 H Urine RBC 10-25 SEEN Urine WBC 0-5 SEEN Ur Squamous Epith Cells 5-10 SEEN Urine Bacteria RARE Urine Mucus 0 SEEN U Random Total Protein Urine Creatinine Protein/Creatinin Ratio Vag Amniotic Fld Detect Blood Type Antibody Screen Medical Necessity - Tobacco Use Smoking Status: Never smoker Assessment/Plan Active and Suspected Problems (Last Reviewed 01/09/18 @ 10:10 by Gabby Holland) (spontaneous vaginal delivery) (Acute) 38 weeks gestation of (Acute) Rupture of membranes with clear amniotic fluid (Acute) 27yo PPD#1 s/p doing well. -B positive, Rubella immune -, consultation today -Routine care
[2018-01-10] MEDS: Prenatal Vits Tablet 1 TABLET PO (11:54)
[2018-01-10] MEDS: Senna/Docusate Sodium 1 Tablet PO (11:54)
[2018-01-10] MEDS: Ibuprofen 600 MG Tablet PO (11:54)
[2018-01-10 11:55] VITALS: BP 120/75; PULSE 90; RESP 16; TEMP 36.9
[2018-01-10 16:35] VITALS: BP 124/87; PULSE 84; RESP 16; TEMP 37.1
[2018-01-10 19:15] VITALS: BP 120/59; PULSE 85; RESP 16; TEMP 36.9; O2SAT 97
[2018-01-11 01:24] VITALS: BP 137/75; PULSE 86; RESP 16; TEMP 36.6; O2SAT 98
--- NOTE | 2018-01-11 09:36 | PCM.PN.OB ---
Patient Problems: Active and Suspected Problems (Last Reviewed 01/09/18 @ 10:10 by Gabby Holland) (spontaneous vaginal delivery) (Acute) 38 weeks gestation of (Acute) Rupture of membranes with clear amniotic fluid (Acute) Subjective: No issues overnight. Madison continues to do well. Objective: AVSS - Physical Exam General: Alert, Oriented x3, Cooperative, No apparent distress HEENT: Atraumatic, Normocephalic Lungs: Normal air movement Cardiovascular: Regular rate, Regular Rhythm, Normal S1, Normal S2 Abdomen: Soft, Non Tender, Non-Distended, - - Fundus firm and nontender Extremities: No edema, No Calf Tenderness Neurological: Neuro grossly intact Psych/Mental Status: Normal Affect, Appropriate, Alert and oriented to time, place, person, mood and affect Vital Signs Temp Pulse Resp BP Pulse Ox 97.9 F 86 16 137/75 H 98 01/11/18 01:24 01/11/18 01:24 01/11/18 01:24 01/11/18 01:24 01/11/18 01:24 Oxygen Delivery Method Room Air Weight: 81.6 kg Body Mass Index (BMI) 29.9 Intake and Output for Last 24 Hours 01/09/18 01/10/18 01/11/18 23:59 23:59 23:59 Intake Total 1790 / 1790 1539 / 1539 Output Total 902 / 902 400 / 400 Balance 888 / 888 1139 / 1139 Medical Necessity - Tobacco Use Smoking Status: Never smoker Assessment/Plan Active and Suspected Problems (Last Reviewed 01/09/18 @ 10:10 by Gabby Holland) (spontaneous vaginal delivery) (Acute) 38 weeks gestation of (Acute) Rupture of membranes with clear amniotic fluid (Acute) 27yo PPD#2 s/p doing well. -B positive, Rubella immune -Routine care -Discussed baby blues and symptoms concerning for depression. Instructed to call Dr. Murillo's office for follow up should she experience concerning symptoms. -Plan for discharge home later today.
[2018-01-11 09:40] VITALS: BP 116/61; PULSE 83; RESP 16; TEMP 37; O2SAT 99
--- NOTE | 2018-01-11 09:47 | PCM.DC.SUM ---
Discharge Date and Diagnosis - Problem List Patient Problems: Active and Suspected Problems (Last Reviewed 01/09/18 @ 10:10 by Gabby Holland) (spontaneous vaginal delivery) (Acute) 38 weeks gestation of (Acute) Rupture of membranes with clear amniotic fluid (Acute) Date of Admission: 01/09/18 Date of Discharge: 01/11/18 - Primary Discharge Diagnosis Active and Suspected Problems (Last Reviewed 01/09/18 @ 10:10 by Gabby Holland) (spontaneous vaginal delivery) (Acute) 38 weeks gestation of (Acute) Rupture of membranes with clear amniotic fluid (Acute) Hospital Course and Treatment Operations: None Procedures: None Summary of Care Provided: The patient is a 27 year old F admitted at 38 6/7 weeks gestational age in labor with SROM. She progressed and had an uncomplicated vaginal delivery. Her course was unremarkable. She was , out of bed and voiding without difficulty. She was discharged to home on day #2. Discharge Diet: No Restrictions Discharge Activity: Return to Normal Activity, May Shower May resume sexual activity in: 6 weeks Call your doctor if you observe: Fever of 101 or Higher, Inability to urinate, Inability to have a bowel movement, Using more than one pad per hour, Shortness of breath, Chest pain, Calf discomfort, Uncontrolled pain Suture Line Care: Avoid Pulling/Pushing Cleanse incision/area with: Soap & Water Home Medications: Medications to take at Discharge vitamin,calcium,vlfadjuz-wafv-rzoad acid tablet 1 tab PO QDAY 08/28/17 famotidine 20 mg tablet 20 mg PO QDAY 01/09/18 Docusate Sodium [Colace] 100 mg PO BID PRN PRN #60 cap 01/10/18 Ibuprofen 600 mg PO TID PRN #30 tab 01/10/18 Following Prescrptions Were Given to Patient: Docusate Sodium [Colace] 100 mg PO BID PRN PRN #60 cap PRN Reason: Constipation Ibuprofen 600 mg PO TID PRN #30 tab PRN Reason: Pain Other Amb Orders: Electric breast pump Location: None Selected Primary Care Physician: Care Physician,No Primary [Primary Care Provider] - Please Follow Up With: Anel Mckoy MD Medical Necessity - Tobacco Use Smoking Status: Never smoker Meaningful Use Info Meaningful Use Diagnoses (Choose all that apply): None applicable
[2018-01-11] MEDS: Ibuprofen 600 MG Tablet PO (10:03)
[2018-01-11] MEDS: Senna/Docusate Sodium 1 Tablet PO (10:04)
[2018-01-11 12:10] VITALS: BP 123/75; PULSE 82; RESP 16; TEMP 36.9; O2SAT 99
== END 2018-01-11 14:35 | disposition home or self-care (01) | DRG 775 ==
LOC: WP 14:46 → WPOUT 01-12 08:32
PROVIDERS: Nurse Practitioner Women's Health; Admitting Provider Obstetrics & Gynecology; Visit Provider Obstetrics & Gynecology
DX: O42.92 Full-term premature rupture of membranes, unspecified as to length of time between rupture and onset of labor (principal); Z37.0 Single live birth; O70.1 Second degree perineal laceration during delivery; Z3A.38 38 weeks gestation of pregnancy
CPT/HCPCS: 59025; 59050; 80053; 81001; 82570; 83615; 84112; 84156; 84550; 85025; 86850; 86900; 87086; 88307; 99218; J7120; A4216; G0378; J2405

== ENCOUNTER → 2018-03-17 13:30 | Outpatient (CLI) | payer OTHER, SELFPAY ==
[2018-03-17 13:51] LABS: Absolute Lymphocyte Count 1.69 X10^3/ul (0.83-4.51); Basophil# 0.02 X10^3/uL; Basophil% 0.3 % (0-1); Eosinophil# 0.08 X10^3/uL; Eosinophils% 1.3 % (0-5); Hematocrit 41.7 % (37-47); Hemoglobin 13.4 g/dl (12.0-15.0); Lymphocyte # 1.69 X10^3/ul (4.0); Lymphocyte % 26.4 % (19-41); Mean Corp Hgb Conc 32.1 g/gl (32-36); Mean Corpuscular Hgb 28.9 pg (27.0-32.0); Mean Corpuscular Volume 90.1 fL (81-99); Mean Platelet Vol. 8.9 fl (6.2-12.0); Monocyte# 0.57 X10^3/uL; Monocyte% 8.9 % (0-10); Neutrophil # 4.03 X10^3/uL (2.7-7.7); Neutrophil % 62.9 % (47-70); POSITIVE COUNT NO; POSITIVE DIFFERENTIAL NO; POSITIVE MORPHOLOGY NO; Platelet Count 291 K/mm3 (150-450); RBC Distribution Width CV 12.8 % (11.6-14.6); RBC Distribution Width SD 41.3 fl (35.1-43.9); Red Blood Count 4.63 M/mm3 (4.2-5.4); White Blood Count 6.4 K/mm3 (4.4-11.0)
[2018-03-17 14:33] LABS: Thyroid Stim Hormone (TSH) 1.34 uIU/mL (0.358-3.74)
== END ==
PROVIDERS: Visit Provider Nurse Practitioner Women's Health
DX: R42 Dizziness and giddiness (principal)
CPT/HCPCS: 36415; 84443; 85025

== ENCOUNTER → 2019-04-06 15:15 | Outpatient (CLI) | payer OTHER, SELFPAY ==
[2019-04-06 14:59] VITALS: BMI 24.3
[2019-04-06 21:13] LABS: Chlamydia Trachomatis by PCR Negative (Negative); Neisserai gonorrhoeae by PCR Negative (Negative); Probe Check PASS; Sample Adequacy Control PASS; Specimen Processing Control PASS
[2019-04-12 10:22] LABS: HPV APTIMA, High Risk Negative (Negative)
== END ==
PROVIDERS: Referring Provider Obstetrics & Gynecology; Visit Provider Obstetrics & Gynecology
DX: Z12.4 Encounter for screening for malignant neoplasm of cervix (principal); Z34.80 Encounter for supervision of other normal pregnancy, unspecified trimester
CPT/HCPCS: 87086; 87491; 87591; 87624; 88175; G0145

== ENCOUNTER → 2019-05-04 13:38 | Outpatient (CLI) | payer OTHER, SELFPAY ==
[2019-05-04 13:04] VITALS: BMI 24.3
[2019-05-04 13:51] LABS: Absolute Lymphocyte Count 1.19 X10^3/uL (0.83-4.51); Absolute Neutrophil Count 5.2 X10^3/uL (2.0-7.7); Basophil# 0.02 X10^3/uL; Basophil% 0.3 % (0-1); Eosinophil# 0.03 X10^3/uL; Eosinophils% 0.4 % (0-5); Hematocrit 39.8 % (37-47); Hemoglobin 13.2 g/dL (12.0-15.0); Lymphocyte # 1.19 X10^3/ul (4.0); Lymphocyte % 16.9 % (19-41); Mean Corp Hgb Conc 33.2 g/dL (32-36); Mean Corpuscular Hgb 28.8 pg (27.0-32.0); Mean Corpuscular Volume 86.9 fL (81-99); Mean Platelet Vol. 8.6 fl (6.2-12.0); Monocyte# 0.53 X10^3/uL; Monocyte% 7.5 % (0-10); NRBC Flagged by Analyzer 0 % (0-5); Neutrophil # 5.24 X10^3/uL (2.7-7.7); Neutrophil % 74.6 % (47-70); Platelet Count 260 K/mm3 (150-450); RBC Distribution Width CV 13.5 % (11.6-14.6); RBC Distribution Width SD 42.3 fl (35.1-43.9); Red Blood Count 4.58 M/mm3 (4.2-5.4)
[2019-05-04 15:02] LABS: HIV - WCH Non-Reactive (Nonreactive); Rubella IgG 26.7 IU/mL
[2019-05-07 00:53] LABS: Rapid Plasmin Reagin (RPR) NONREACTIVE (NONREACTIVE)
== END ==
PROVIDERS: Referring Provider Obstetrics & Gynecology; Visit Provider Obstetrics & Gynecology
DX: Z34.80 Encounter for supervision of other normal pregnancy, unspecified trimester (principal)
CPT/HCPCS: 36415; 85025; 86592; 86703; 86762; 86850; 86900; 86901

== ENCOUNTER → 2019-07-01 16:18 | Outpatient (CLI) | payer OTHER, SELFPAY ==
[2019-07-01 13:02] VITALS: BMI 24.3
== END ==
PROVIDERS: Referring Provider Obstetrics & Gynecology; Visit Provider Obstetrics & Gynecology
DX: O26.899 Other specified pregnancy related conditions, unspecified trimester (principal); N89.8 Other specified noninflammatory disorders of vagina
CPT/HCPCS: 87070; 87205

== ENCOUNTER → 2019-08-09 09:25 | Outpatient (CLI) | payer OTHER, MEDICAID, SELFPAY ==
[2019-08-09 09:06] VITALS: BMI 24.3
[2019-08-09 10:13] LABS: Absolute Lymphocyte Count 1.22 X10^3/uL (0.83-4.51); Absolute Neutrophil Count 7.4 X10^3/uL (2.0-7.7); Basophil# 0.02 X10^3/uL; Basophil% 0.2 % (0-1); Eosinophil# 0.06 X10^3/uL; Eosinophils% 0.7 % (0-5); Hematocrit 36.2 % (37-47); Hemoglobin 11.9 g/dL (12.0-15.0); Lymphocyte # 1.22 X10^3/ul (4.0); Lymphocyte % 13.4 % (19-41); Mean Corp Hgb Conc 32.9 g/dL (32-36); Mean Corpuscular Hgb 30.6 pg (27.0-32.0); Mean Corpuscular Volume 93.1 fL (81-99); Mean Platelet Vol. 8.7 fl (6.2-12.0); Monocyte# 0.39 X10^3/uL; Monocyte% 4.3 % (0-10); NRBC Flagged by Analyzer 0 % (0-5); Neutrophil # 7.37 X10^3/uL (2.7-7.7); Neutrophil % 80.9 % (47-70); Platelet Count 286 K/mm3 (150-450); RBC Distribution Width CV 14.3 % (11.6-14.6); RBC Distribution Width SD 47.9 fl (35.1-43.9); Red Blood Count 3.89 M/mm3 (4.2-5.4); White Blood Count 9.1 K/mm3 (4.4-11.0)
[2019-08-09 10:23] LABS: Glucose Challenge Gest 1H 50g 117 mg/dL (70-140)
[2019-08-09 10:55] LABS: Hepatitis B Surface Antigen Non-Reactive (Nonreactive)
== END ==
PROVIDERS: Referring Provider Nurse Practitioner Women's Health; Visit Provider Nurse Practitioner Women's Health
DX: Z34.80 Encounter for supervision of other normal pregnancy, unspecified trimester (principal)
CPT/HCPCS: 36415; 82950; 85025; 87340

== ENCOUNTER → 2019-09-27 11:25 | Outpatient (CLI) | payer OTHER, MEDICAID, SELFPAY ==
[2019-09-24 13:32] VITALS: BMI 24.3
--- NOTE | 2019-09-27 11:27 | US_ITS ---
STUDY: SECOND AND THIRD TRIMESTER OBSTETRICAL ULTRASOUND REASON FOR EXAM: Female, 29 years old SMALL FOR DATES- growth LMP: January 29, 2019. TECHNIQUE: Transabdominal and Transvaginal TECHNICAL QUALITY: Adequate. PRIOR ULTRASOUND: None. FINDINGS: There is a single intrauterine fetus. The fetus is in a cephalic presentation. There is demonstrated cardiac activity with a heart rate of 156 bpm. There is a normal amniotic fluid volume. The largest amniotic fluid pocket measures 5.6 cm. The amniotic fluid index (PRESTON) is 13.9 cm. The placenta is anterior in location and is not low lying. There are Grade 1 placental changes. The cervix measures 3.7 cm in length. The adnexal regions are not visualized. BIOMETRY: BPD: 8.8 cm: 35 weeks, 4 days HC: 32.4 cm: 36 weeks, 5 days AC: 31.6 cm: 35 weeks, 4 days FL: 6.6 cm: 34 weeks, 1 days CI: 81% FL/BPD: 75% FL/HC: FL/AC: 21% HC/AC: 1.03 age by current US: 35 weeks, 4 days. LIONEL by current US: October 28, 2019. Estimated weight: 2631 grams, +/- 384 grams, 69 %. Age by LMP: 34 weeks, 3 days. LIONEL by LMP: November 05, 2019. US/OB Limited With Biometrics IMPRESSION: Single live intrauterine gestation with a mean gestational age of 35 weeks and 4 days. Electronically Signed: Avni Ladd, at 14:55 EST , Service support ,
== END ==
PROVIDERS: PCP Family Medicine; Referring Provider Obstetrics & Gynecology; Visit Provider Obstetrics & Gynecology
DX: O26.843 Uterine size-date discrepancy, third trimester (principal); Z3A.00 Weeks of gestation of pregnancy not specified
CPT/HCPCS: 76816; 76817

== ENCOUNTER → 2019-10-13 11:05 | Outpatient (CLI) | payer OTHER, MEDICAID, SELFPAY ==
[2019-10-13 10:43] VITALS: BMI 27.5
== END ==
PROVIDERS: PCP Family Medicine; Referring Provider Obstetrics & Gynecology; Visit Provider Obstetrics & Gynecology
DX: Z34.90 Encounter for supervision of normal pregnancy, unspecified, unspecified trimester (principal)
CPT/HCPCS: 87081

== ENCOUNTER 2019-10-27 19:33 | Inpatient (IN) | payer OTHER, MEDICAID, SELFPAY ==
[2019-10-21 10:22] VITALS: BMI 24.3
[2019-10-27] MEDS: Lactated Ringers 1,000 ML 200 ML IV (20:00)
[2019-10-27 20:19] VITALS: BMI 28.8
[2019-10-27 20:30] LABS: Absolute Lymphocyte Count 1.12 X10^3/uL (0.83-4.51); Absolute Neutrophil Count 7.9 X10^3/uL (2.0-7.7); Basophil# 0.01 X10^3/uL; Basophil% 0.1 % (0-1); Eosinophil# 0.04 X10^3/uL; Eosinophils% 0.4 % (0-5); Hematocrit 34.2 % (37-47); Hemoglobin 11.2 g/dL (12.0-15.0); Lymphocyte # 1.12 X10^3/ul (4.0); Lymphocyte % 11.5 % (19-41); Mean Corp Hgb Conc 32.7 g/dL (32-36); Mean Corpuscular Hgb 29.8 pg (27.0-32.0); Mean Platelet Vol. 9.6 fl (6.2-12.0); Monocyte# 0.64 X10^3/uL; Monocyte% 6.6 % (0-10); NRBC Flagged by Analyzer 0 % (0-5); Platelet Count 236 K/mm3 (150-450); RBC Distribution Width CV 14.2 % (11.6-14.6); RBC Distribution Width SD 46.5 fl (35.1-43.9); Red Blood Count 3.76 M/mm3 (4.2-5.4); White Blood Count 9.8 K/mm3 (4.4-11.0)
[2019-10-27] MEDS: Mag Hydrox/Al Hydrox/Simeth 30 ML UDC PO (21:45)
--- NOTE | 2019-10-27 22:39 | PCM.HP.OB ---
- Problem List (1) Active labor at term Status: Acute (2) Influenza vaccination declined Status: Acute (3) Status: Acute Qualifiers: Comment: Declines genetic, carrier and NTD at this time. Anatomy scan complete, normal spine. (4) Supervision of other normal Status: Acute Comment: PRR LIONEL 11/05/19 girl JESSICA Santos Spouse Zuhair History Date of Admission: 01/09/18 Final LIONEL: 11/05/19 Final LIONEL Source: US <20 weeks Gestational age: 38 Weeks and 5 Days History of this : This is a 29 year-old, at 38 weeks gestational age presents IAL 5 cm dilated, having regular ctx and no vb lof admits good fm. Medical History: Medical History (Last Reviewed 10/21/19 @ 10:19 by Gabby Holland) No significant past medical history Surgical History: Surgical History (Last Reviewed 10/21/19 @ 10:19 by Gabby Holland) No significant past surgical history Allergies lactase [From Dairy Aid] Adverse Reaction (Mild, Verified 10/27/19 20:18) Unknown gluten Adverse Reaction (Verified 10/27/19 20:18) Unknown lactose Adverse Reaction (Verified 10/21/19 10:20) Unknown Home Medications: Home Medications prenat.vits,choco,gds-drbh-qgmrq 1 tab PO QDAY 08/28/17 Smoking Status: Never smoker Alcohol: None Number of Fetus(es): 1 NST - FHR Rate Baby A Baseline: 130 Variability:: Moderate Accelerations:: 15 x 15 Decelerations:: None NST Reactive:: Yes FHR Category:: Category I Uterine Activity:: q 3-4 History Past Pregnancies: Past Pregnancies preivous Labs: Mom's Labs & Results 10/27/19 10/27/19 20:00 20:00 WBC 9.8 RBC 3.76 L Hgb 11.2 L Hct 34.2 L MCV 91.0 MCH 29.8 MCHC 32.7 RDW Std Deviation 46.5 H RDW Coeff of Shelia 14.2 Plt Count 236 MPV 9.6 Immature Gran % (Auto) 0.400 Neut % (Auto) 81.0 H Lymph % (Auto) 11.5 L Banks % (Auto) 6.6 Eos % (Auto) 0.4 Baso % (Auto) 0.1 Absolute Neuts (auto) 7.9 H Absolute Lymphs (auto) 1.12 Nucleated RBC % 0 Blood Type B POSITIVE Antibody Screen NEGATIVE Course Did the patient receive Yes care? Labs Blood Type: B RH: POSITIVE RPR/VDRL/Syphilis Nonreactive Rubella status Immune HbSAg Negative Date Done: 08/09/19 Chlamydia Negative Gonorrhea Negative HIV/AIDS Non-Reactive Group B Strep: Negative Current Obstetrical History Gestational Diabetes No Incompetent Cervix No Infertility No IUGR No Macrosomia No Hypertension/Pre-eclampsia No Placenta Previa/Abruption No PTL/PROM No Uterine anomaly No Oligohydramnios No Polyhydramnios No Multiple gestation No Past Medical History Asthma No Diabetes No Hypertension No Heart disease No Mitral valve prolapse No Neurologic/Seizure disorder/ No Migraines Kidney disease No Liver disease No Varicosities No Clotting disorders/Hx of DVT No Thyroid Dysfunction No Other medical diseases No Psychiatric disorders No Major trauma No Abnormal PAP smear No Sleep apnea No Mammogram in the last 2 years No Social History Marital Status: Alleged father Zuhair Joseph Hx Smoking No Smoking Status Never smoker Expected Delivery Method: Spontaneous Vaginal Review of Systems Constitutional: Denies: Fever, Malaise Eyes: Denies: Blurred vision, Vision Change HEENT: Denies: Head Aches, Visual Changes Cardiovascular: Denies: Chest Pain, Palpitations Respiratory: Denies: Cough, Shortness of Breath, Wheezing Gastrointestinal: Denies: Abdominal Pain, Diarrhea, Nausea, Vomiting Genitourinary: Denies: Dysuria, Hematuria Musculoskeletal: Denies: Joint Pain, Muscle pain Skin: Denies: Lesions, Rash Neurological: Denies: Blurred vision, Focal weakness, Headaches Psychiatric: Denies: Anxiety, Depression Endocrine: Denies: Heat/ Cold Intolerance Hematologic/ Lymphatic: Denies: Easy Bruising, Easy Bleeding Physical Exam General: Alert, Cooperative, No apparent distress HEENT: Atraumatic, Normocephalic. Negative for: Thyromegaly, Lymphadenopathy Cardiovascular: Regular rate Lungs: Normal air movement Abdomen: Soft, Non Tender, Gravid Neurological: Deep Tendon Reflexes 2+/4 and Symmetrical, Neuro grossly intact. Negative for: Clonus INSTITUTIONAL CUSTODIAN: Normal external genitalia. Negative for: Vulvar lesions Estimated gestational size: Appropriate for gestational size Presentation: Cephalic Assessment/Plan All Active Problems (Last Reviewed 10/21/19 @ 10:19 by Gabby Holland) Active labor at term (Acute) Influenza vaccination declined (Acute) (Acute) Supervision of other normal (Acute) Low lying placenta nos or without hemorrhage, second trimester (Resolved) Mother currently breast-feeding (Resolved) Uterine size-date discrepancy, third trimester (Resolved) This is a 29 year-old, , at 38 weeks gestational age presents IAL. Patient presents IAL, plan expectant management for , AROM clear Pain management: minimal intervention. GBS negative Management of any complications: none I have [facility] and made any clinically relevant updates. Multi Select Codes - Urinary/Genital Urinary/Genital CPT Codes: 29520 Vaginal Delivery [facility]
--- NOTE | 2019-10-27 22:43 | PCM.OPRPT ---
Problem List (1) Active labor at term Status: Acute (2) Influenza vaccination declined Status: Acute (3) Status: Acute Qualifiers: Comment: Declines genetic, carrier and NTD at this time. Anatomy scan complete, normal spine. (4) Supervision of other normal Status: Acute Comment: PRR LIONEL 11/05/19 girl JESSICA Santos Spouse Zuhair Vaginal Delivery Maternal Presentation: Active Labor ial Method of Induction: Pitocin Amniotic Membrane Rupture Type: Spontaneous Amniotic Fluid Description: Clear Final LIONEL: 11/05/19 Gestational age: 38 Weeks and 5 Days Date of Procedure: 10/27/19 Pre-Operative Diagnosis: ial Post-Operative Diagnosis: same Surgery/ Procedure Performed: Spontaneous Vaginal Delivery Type of Anesthesia: None Description of Procedure: Patient began pushing and delivered the head in the JACK presentation. The head was delivered atraumatically . The anterior and posterior shoulders delivered without complication followed by the rest of the and the infant was placed on the maternal abdomen. Delayed cord clamping was employed for approximately 60 seconds. Cord was clamped and cut and gentle traction was applied to the cord and the placenta delivered spontaneously immediately following it was noted to be intact with three-vessel cord. The perineum and vagina were inspected and noted to have no laceration. EBL was 100 cc. Patient and infant tolerated delivery well. Presentation: JACK Placental Delivery Description: Spontaneous Placenta Disposition: [facility] Cord Entanglement: None Estimated Blood Loss: 100 Infant A gender: Female Episiotomy Description: None Laceration: None Complications: None Multi Select Codes - Urinary/Genital Urinary/Genital CPT Codes: 73196 Vaginal Delivery [facility]
[2019-10-27] MEDS: Naproxen 250 MG Tablet 500 MG PO (23:06)
[2019-10-27] MEDS: Oxytocin 30 units/NS 500 ml 30 UNITS/500 ML IV.SOLN 334 UNITS IV (23:15)
[2019-10-28] MEDS: oxyCODONE 5 MG Tablet PO (00:01)
[2019-10-28 03:28] VITALS: BP 127/60; PULSE 86; RESP 18; TEMP 37.2
[2019-10-28 07:54] VITALS: BP 122/68; PULSE 83; RESP 14; TEMP 37.1
--- NOTE | 2019-10-28 08:03 | PCM.PN.OB ---
Patient Problems: Active and Suspected Problems (Last Reviewed 10/21/19 @ 10:19 by Gabby Holland) Active labor at term (Acute) Subjective: Doing well, no complaints.Pain controlled. Denies CP, SOB, N,V. Ambulating well, tolerating po. Lochia moderate, going well. - Physical Exam Vitals/I&O's: Vital Signs Temp Pulse Resp BP 98.7 F 83 14 122/68 H 10/28/19 07:54 10/28/19 07:54 10/28/19 07:54 10/28/19 07:54 Oxygen Delivery Method Room Air Weight: 173 lb 4.533 oz Body Mass Index (BMI) 28.8 Intake and Output for Last 24 Hours 10/26/19 10/27/19 10/28/19 23:59 23:59 23:59 Intake Total 1467 / 1467 333 / 333 Output Total 500 / 500 700 / 700 Balance 967 / 967 -367 / -367 General: Alert, Oriented x3 Abdomen: Soft, Non Tender, - - FF below U Laboratory Results 10/27/19 20:00: WBC 9.8, RBC 3.76 L, Hgb 11.2 L, Hct 34.2 L, MCV 91.0, MCH 29.8, MCHC 32.7, RDW Std Deviation 46.5 H, RDW Coeff of Shelia 14.2, Plt Count 236, MPV 9.6, Immature Gran % (Auto) 0.400, Neut % (Auto) 81.0 H, Lymph % (Auto) 11.5 L, [place] % (Auto) 6.6, Eos % (Auto) 0.4, Baso % (Auto) 0.1, Absolute Neuts (auto) 7.9 H, Absolute Lymphs (auto) 1.12, Nucleated RBC % 0 10/27/19 20:00: Blood Type B POSITIVE, Antibody Screen NEGATIVE Current Medications Acetaminophen (Tylenol) 1,000 mg PO Q8H PRN PRN PRN Reason: Pain Score 1-3/10 Bisacodyl (Dulcolax) 10 mg RECTAL UD PRN PRN Reason: If no BM Dibucaine (Dibucaine) 1 applic TOPICAL TID PRN PRN; Protocol PRN Reason: Discomfort Hydrocortisone (Hytone) 1 applic TOPICAL TID PRN PRN; Protocol PRN Reason: Discomfort Methylergonovine Maleate (Methergine) 0.2 mg IM X1 PRN PRN Reason: Excess bleeding/uterine atony Naproxen (Naprosyn) 500 mg PO Q8H PRN PRN PRN Reason: Pain Score 1-3/10 Last Admin: 10/27/19 23:06 Dose: 500 mg Documented by: Ondansetron HCl (Zofran) 4 mg IV Q4H PRN PRN PRN Reason: Nausea Oxycodone HCl (Oxyir) 5 - 10 mg PO Q4H PRN PRN PRN Reason: Pain Score 4-10/10 Last Admin: 10/28/19 00:01 Dose: 5 mg Documented by: Senna/Docusate Sodium (Senokot-S, Whit-Colace) 1 - 2 tablet PO DAILY PRN PRN PRN Reason: Constipation Simethicone (Mylicon) 80 mg PO PCHS PRN PRN Reason: Indigestion/Stomach pain Last Admin: 10/28/19 07:52 Dose: 80 mg Documented by: Sodium Chloride () 5 - 15 ml IV UD PRN PRN Reason: SALINE FLUSH Medical Necessity - Tobacco Use Smoking Status: Never smoker Assessment/Plan All Active Problems (Last Reviewed 10/21/19 @ 10:19 by Gabby Holland) Active labor at term (Acute) Influenza vaccination declined (Acute) (Acute) Supervision of other normal (Acute) Low lying placenta nos or without hemorrhage, second trimester (Resolved) Mother currently breast-feeding (Resolved) Uterine size-date discrepancy, third trimester (Resolved) s/p PPD # 1 1. routine post delivery care 2. breast feeding- support given 3. rh positive 4. rubella immune
[2019-10-28 13:23] VITALS: BP 128/59; PULSE 81; RESP 16; TEMP 36.4; O2SAT 99
[2019-10-28 20:05] VITALS: BP 133/73; PULSE 84; RESP 16; TEMP 37.1
[2019-10-29 01:05] VITALS: BP 108/56; PULSE 77; RESP 16; TEMP 36.7
--- NOTE | 2019-10-29 04:54 | DCINST_ITS ---
Discharge Diet: No Restrictions Discharge Activity: Return to Normal Activity, May not drive while taking narcotic pain medications., May Shower May resume sexual activity in: 4-6 weeks Call your doctor if your incision/area has: Continuous Slow Oozing, Sudden Increased Bleeding, Increased Pain/ Swelling, Increased Redness, Foul Smelling Discharge Additional Instructions: If you experience any of the following, contact your healthcare provider. * Bleeding that soaks a pad every hour for 2 hours * Fever 100.4 or higher * Unrelieved incision or abdominal pain * Swelling, redness, discharge or bleeding from your incision or episiotomy site * Your incision begins to separate * Problems urinating (including inability to urinate or burning while urinating). * Visual changes * Severe headache * Flu-like symptoms * Pain or redness in one of both of your breasts * Pain, warmth, tenderness or swelling in your legs, especially the calf area * Frequent nausea and vomiting * Symptoms of depression or anxiety If you experience any of the following, call 911 or go to the nearest Emergency Room. * Chest pain * Problems breathing * Seizure activity * Partial or complete paralysis of a body part, slurred speech, weakness or drooping of the face, or a sudden inability to walk or hold your balance Allergies/Adverse Reactions: Allergies lactase [From Dairy Aid] Adverse Reaction (Mild, Verified 10/27/19 20:18) Unknown gluten Adverse Reaction (Verified 10/27/19 20:18) Unknown lactose Adverse Reaction (Verified 10/21/19 10:20) Unknown Medications to take at Discharge prenat.vits,choco,wmz-ypyz-zkstt 1 tab PO QDAY 08/28/17 Please Follow Up With: Anel Mckoy MD - [phone] When: Call to make an appointment with your doctor in 6 weeks. If you had elevated Blood pressure or 4th degree laceration you will need to be seen in 2 weeks. Primary Care Physician: Sultana Shore [Primary Care Provider] - Test Results: Test results from this visit will be discussed in further detail at your follow- up appointment, if applicable.
--- NOTE | 2019-10-29 04:54 | PCM.DCVAG ---
Discharge Diet: No Restrictions Discharge Activity: Return to Normal Activity, May not drive while taking narcotic pain medications., May Shower May resume sexual activity in: 4-6 weeks Call your doctor if your incision/area has: Continuous Slow Oozing, Sudden Increased Bleeding, Increased Pain/ Swelling, Increased Redness, Foul Smelling Discharge Additional Instructions: If you experience any of the following, contact your healthcare provider. Bleeding that soaks a pad every hour for 2 hours Fever 100.4 or higher Unrelieved incision or abdominal pain Swelling, redness, discharge or bleeding from your incision or episiotomy site Your incision begins to separate Problems urinating (including inability to urinate or burning while urinating). Visual changes Severe headache Flu-like symptoms Pain or redness in one of both of your breasts Pain, warmth, tenderness or swelling in your legs, especially the calf area Frequent nausea and vomiting Symptoms of depression or anxiety If you experience any of the following, call 911 or go to the nearest Emergency Room. Chest pain Problems breathing Seizure activity Partial or complete paralysis of a body part, slurred speech, weakness or drooping of the face, or a sudden inability to walk or hold your balance Allergies/Adverse Reactions: Allergies lactase [From Dairy Aid] Adverse Reaction (Mild, Verified 10/27/19 20:18) Unknown gluten Adverse Reaction (Verified 10/27/19 20:18) Unknown lactose Adverse Reaction (Verified 10/21/19 10:20) Unknown Medications to take at Discharge prenat.vits,choco,ial-eivg-omzee 1 tab PO QDAY 08/28/17 Please Follow Up With: Anel Mckoy MD - [phone] When: Call to make an appointment with your doctor in 6 weeks. If you had elevated Blood pressure or 4th degree laceration you will need to be seen in 2 weeks. Primary Care Physician: Sultana Shore [Primary Care Provider] - Test Results: Test results from this visit will be discussed in further detail at your follow-up appointment, if applicable.
--- NOTE | 2019-10-29 04:54 | PCM.PN.OB ---
Patient Problems: Active and Suspected Problems (Last Reviewed 10/21/19 @ 10:19 by Gabby Holland) Active labor at term (Acute) Subjective: doing well no complaints pain controlled no CP SOB N V ambulating well tolerating po lochia moderate, going well - Physical Exam Vitals/I&O's: Vital Signs Temp Pulse Resp BP Pulse Ox 98.1 F 77 16 108/56 L 99 10/29/19 01:05 10/29/19 01:05 10/29/19 01:05 10/29/19 01:05 10/28/19 13:23 Oxygen Delivery Method Room Air Weight: 173 lb 4.533 oz Body Mass Index (BMI) 28.8 Intake and Output for Last 24 Hours 10/27/19 10/28/19 10/29/19 23:59 23:59 23:59 Intake Total 1467 / 1467 333 / 333 Output Total 500 / 500 700 / 700 Balance 967 / 967 -367 / -367 General: Alert, Oriented x3 Current Medications Acetaminophen (Tylenol) 1,000 mg PO Q8H PRN PRN PRN Reason: Pain Score 1-3/10 Bisacodyl (Dulcolax) 10 mg RECTAL UD PRN PRN Reason: If no BM Dibucaine (Dibucaine) 1 applic TOPICAL TID PRN PRN; Protocol PRN Reason: Discomfort Hydrocortisone (Hytone) 1 applic TOPICAL TID PRN PRN; Protocol PRN Reason: Discomfort Methylergonovine Maleate (Methergine) 0.2 mg IM X1 PRN PRN Reason: Excess bleeding/uterine atony Naproxen (Naprosyn) 500 mg PO Q8H PRN PRN PRN Reason: Pain Score 1-3/10 Last Admin: 10/27/19 23:06 Dose: 500 mg Documented by: Ondansetron HCl (Zofran) 4 mg IV Q4H PRN PRN PRN Reason: Nausea Oxycodone HCl (Oxyir) 5 - 10 mg PO Q4H PRN PRN PRN Reason: Pain Score 4-10/10 Last Admin: 10/28/19 00:01 Dose: 5 mg Documented by: Senna/Docusate Sodium (Senokot-S, Whit-Colace) 1 - 2 tablet PO DAILY PRN PRN PRN Reason: Constipation Simethicone (Mylicon) 80 mg PO PCHS PRN PRN Reason: Indigestion/Stomach pain Last Admin: 10/29/19 01:03 Dose: 80 mg Documented by: Sodium Chloride () 5 - 15 ml IV UD PRN PRN Reason: SALINE FLUSH Medical Necessity - Tobacco Use Smoking Status: Never smoker Assessment/Plan All Active Problems (Last Reviewed 10/21/19 @ 10:19 by Gabby Holland) Active labor at term (Acute) Influenza vaccination declined (Acute) (Acute) Supervision of other normal (Acute) Low lying placenta nos or without hemorrhage, second trimester (Resolved) Mother currently breast-feeding (Resolved) Uterine size-date discrepancy, third trimester (Resolved) s/p PPD # 2 1. routine post delivery care 2. breast feeding- support given 3. rh positive 4. rubella immune
[2019-10-29 09:30] VITALS: BP 114/61; PULSE 84; RESP 16; TEMP 36.3; O2SAT 98
[2019-10-29] MEDS: Senna/Docusate Sodium 1 Tablet PO (10:14)
== END 2019-10-29 11:40 | disposition home or self-care (01) | DRG 807 ==
LOC: WPOUT 19:38 → WP 19:38
PROVIDERS: Admitting Provider Obstetrics & Gynecology; PCP Family Medicine; Visit Provider Obstetrics & Gynecology
DX: O80 Encounter for full-term uncomplicated delivery (principal); Z37.0 Single live birth; Z3A.38 38 weeks gestation of pregnancy
CPT/HCPCS: 59025; 59050; 85025; 86850; 86900; 86901; 99218; J7120; G0378; J2405

== ENCOUNTER → 2020-08-16 16:00 | Outpatient (CLI) | payer OTHER, MEDICAID, SELFPAY ==
[2020-08-16 13:25] VITALS: BMI 25.2
== END ==
PROVIDERS: PCP Family Medicine; Visit Provider Nurse Practitioner Women's Health
DX: N94.6 Dysmenorrhea, unspecified (principal)
CPT/HCPCS: 87070; 87077; 87205

== ENCOUNTER → 2020-08-21 12:48 | Outpatient (CLI) | payer OTHER, MEDICAID, SELFPAY ==
[2020-08-16 13:25] VITALS: BMI 25.2
--- NOTE | 2020-08-21 12:57 | US_ITS ---
STUDY: ULTRASOUND OF THE FEMALE PELVIS - COMPLETE REASON FOR EXAM: Female, 30 years old. DYSMENORRHEA , PELVIC PAIN SINCE VAGINAL DELIVERY IN OCTOBER 2019 LMP: 08/10/2020. TECHNIQUE: Transabdominal and Transvaginal TECHNICAL QUALITY: Adequate. COMPARISON: None. FINDINGS: The uterus is anteverted and is tilted to the right side of the pelvis. The uterus measures 7.4 cm x 4.6 cm x 3.1 cm. Normal uterine cervix. The endometrium measures 9.8 mm in thickness, and is heterogeneous (striated). There is no demonstrated endometrial mass. There is no demonstrated myometrial mass. I.U.D. - The patient does not have an I.U.D. The right ovary is visualized. The right ovary measures 3.5 cm x 1.8 cm x 1.8 cm. Dominant follicles are seen within the ovary. There is no visualized right adnexal mass or complex lesion. There is normal arterial and normal venous vascularity. The left ovary is visualized. The left ovary measures 2.1 cm x 2 cm x 2.6 cm. Multiple small follicles are seen. There is no visualized left adnexal mass or complex lesion. There is normal arterial and normal venous vascularity. There is minimal fluid in the cul-de-sac. US/Transvaginal Non- IMPRESSION: Normal female pelvis. Electronically Signed: Avni Ladd, at 15:53 EST , Service support ,
--- NOTE | 2020-08-21 12:57 | US_ITS ---
STUDY: ULTRASOUND OF THE FEMALE PELVIS - COMPLETE REASON FOR EXAM: Female, 30 years old. DYSMENORRHEA , PELVIC PAIN SINCE VAGINAL DELIVERY IN OCTOBER 2019 LMP: 08/10/2020. TECHNIQUE: Transabdominal and Transvaginal TECHNICAL QUALITY: Adequate. COMPARISON: None. FINDINGS: The uterus is anteverted and is tilted to the right side of the pelvis. The uterus measures 7.4 cm x 4.6 cm x 3.1 cm. Normal uterine cervix. The endometrium measures 9.8 mm in thickness, and is heterogeneous (striated). There is no demonstrated endometrial mass. There is no demonstrated myometrial mass. I.U.D. - The patient does not have an I.U.D. The right ovary is visualized. The right ovary measures 3.5 cm x 1.8 cm x 1.8 cm. Dominant follicles are seen within the ovary. There is no visualized right adnexal mass or complex lesion. There is normal arterial and normal venous vascularity. The left ovary is visualized. The left ovary measures 2.1 cm x 2 cm x 2.6 cm. Multiple small follicles are seen. There is no visualized left adnexal mass or complex lesion. There is normal arterial and normal venous vascularity. There is minimal fluid in the cul-de-sac. US/Pelvic (Non ) IMPRESSION: Normal female pelvis. Electronically Signed: Avni Ladd, at 15:53 EST , Service support ,
== END ==
PROVIDERS: PCP Family Medicine; Referring Provider Nurse Practitioner Women's Health; Visit Provider Nurse Practitioner Women's Health
DX: N94.6 Dysmenorrhea, unspecified (principal)
CPT/HCPCS: 76830; 76856; 93976

== ENCOUNTER → 2020-12-18 16:49 | Outpatient (CLI) | payer OTHER, MEDICAID, SELFPAY ==
[2020-12-18 15:04] VITALS: BMI 24.3
[2020-12-22 12:30] LABS: HPV APTIMA, High Risk Negative (Negative)
== END ==
PROVIDERS: PCP Family Medicine; Referring Provider Obstetrics & Gynecology; Visit Provider Obstetrics & Gynecology
DX: Z12.4 Encounter for screening for malignant neoplasm of cervix (principal)
CPT/HCPCS: 87624; 88175; G0145

== ENCOUNTER → 2022-01-23 | Outpatient (CLI) | payer OTHER, MEDICAID, SELFPAY ==
[2022-01-23 14:02] LABS: Amphetamine Urine VISTA NEGATIVE (<1000 ng/mL); Barbiturate Urine VISTA NEGATIVE (< 200 ng/mL); Benzodiazepine Urine VISTA NEGATIVE (< 200 ng/mL); Cocaine Urine VISTA NEGATIVE (< 300 ng/mL); Ecstacy Urine VISTA NEGATIVE (< 500 ng/mL); Methadone Urine VISTA NEGATIVE (< 300 ng/mL); PCP Urine VISTA NEGATIVE (< 25 ng/mL); THC Urine VISTA NEGATIVE (< 50 ng/mL); Vista UDS pH Range 5
[2022-01-28 21:06] LABS: Chlamydia By Nucleic Acid AMP Negative (Negative)
[2022-01-28 21:23] LABS: Gonococcus By Nucleic Acid AMP Negative (Negative)
[2022-01-30 10:24] LABS: HPV APTIMA, High Risk Negative (Negative)
== END | disposition home or self-care (01) ==
LOC: LABSPEC 01-24 08:02
PROVIDERS: PCP Family Medicine; Visit Provider Obstetrics & Gynecology
DX: Z34.90 Encounter for supervision of normal pregnancy, unspecified, unspecified trimester (principal); Z12.4 Encounter for screening for malignant neoplasm of cervix
CPT/HCPCS: 80307; 87086; 87088; 87491; 87591; 87624; 88175; G0145

== ENCOUNTER → 2022-02-19 | Outpatient (CLI) | payer OTHER, MEDICAID, SELFPAY ==
[2022-02-19 17:05] LABS: Absolute Lymphocyte Count 1.44 X10^3/uL (0.83-4.51); Absolute Neutrophil Count 5.2 X10^3/uL (2.0-7.7); Basophil# 0.01 X10^3/uL; Basophil% 0.1 % (0-1); Eosinophil# 0.06 X10^3/uL; Eosinophils% 0.8 % (0-5); Hematocrit 38.4 % (37-47); Hemoglobin 12.9 g/dL (12.0-15.0); Lymphocyte # 1.44 X10^3/ul (0.83-4.51); Lymphocyte % 19.8 % (19-41); Mean Corp Hgb Conc 33.6 g/dL (32-36); Mean Corpuscular Hgb 29.6 pg (27.0-32.0); Mean Corpuscular Volume 88.1 fL (81-99); Mean Platelet Vol. 8.8 fl (6.2-12.0); Monocyte# 0.56 X10^3/uL; Monocyte% 7.7 % (0-10); NRBC Flagged by Analyzer 0 % (0-5); Neutrophil # 5.18 X10^3/uL (2.7-7.7); Neutrophil % 71.2 % (47-70); Platelet Count 291 K/mm3 (150-450); RBC Distribution Width CV 13.8 % (11.6-14.6); RBC Distribution Width SD 44.1 fl (35.1-43.9); Red Blood Count 4.36 M/mm3 (4.2-5.4); White Blood Count 7.3 K/mm3 (4.4-11.0)
[2022-02-19 18:54] LABS: HIV - WCH Non-Reactive (Nonreactive); Hepatitis B Surface Antigen Non-Reactive (Nonreactive); Hepatitis C Antibody Non-Reactive (Nonreactive); Rubella IgG Reactive (Nonreactive); Syphilis Antibodies Non-reactive
== END | disposition home or self-care (01) ==
LOC: LAB 16:42
PROVIDERS: PCP Family Medicine; Visit Provider Obstetrics & Gynecology
DX: Z34.90 Encounter for supervision of normal pregnancy, unspecified, unspecified trimester (principal)
CPT/HCPCS: 36415; 85025; 86703; 86762; 86780; 86803; 86850; 86900; 86901; 87340

== ENCOUNTER → 2022-06-04 | Outpatient (CLI) | payer OTHER, MEDICAID, SELFPAY ==
[2022-06-04 11:09] LABS: Absolute Lymphocyte Count 0.88 X10^3/uL (0.83-4.51); Absolute Neutrophil Count 5.4 X10^3/uL (2.0-7.7); Basophil# 0.01 X10^3/uL; Basophil% 0.1 % (0-1); Eosinophil# 0.05 X10^3/uL; Eosinophils% 0.7 % (0-5); Hematocrit 37.7 % (37-47); Hemoglobin 12.1 g/dL (12.0-15.0); Lymphocyte # 0.88 X10^3/ul (0.83-4.51); Mean Corp Hgb Conc 32.1 g/dL (32-36); Mean Corpuscular Hgb 30.8 pg (27.0-32.0); Mean Corpuscular Volume 95.9 fL (81-99); Mean Platelet Vol. 8.8 fl (6.2-12.0); Monocyte# 0.38 X10^3/uL; Monocyte% 5.6 % (0-10); NRBC Flagged by Analyzer 0 % (0-5); Neutrophil % 80.2 % (47-70); Platelet Count 296 K/mm3 (150-450); RBC Distribution Width CV 13.7 % (11.6-14.6); RBC Distribution Width SD 47.9 fl (35.1-43.9); Red Blood Count 3.93 M/mm3 (4.2-5.4); White Blood Count 6.8 K/mm3 (4.4-11.0)
[2022-06-04 11:29] LABS: Glucose Challenge Gest 1H 50g 96 mg/dL (70-140)
== END | disposition home or self-care (01) ==
LOC: PAVLAB 09:07
PROVIDERS: PCP Family Medicine; Referring Provider Obstetrics & Gynecology; Visit Provider Obstetrics & Gynecology
DX: Z13.1 Encounter for screening for diabetes mellitus (principal); Z34.90 Encounter for supervision of normal pregnancy, unspecified, unspecified trimester
CPT/HCPCS: 36415; 82950; 85025

== ENCOUNTER 2022-07-28 18:05 | Outpatient (CLI) | payer OTHER, MEDICAID, SELFPAY ==
[2022-07-28 18:45] VITALS: BP 143/73; PULSE 77; TEMP 37
[2022-07-28 18:58] VITALS: BMI 29.9
[2022-07-28 19:45] VITALS: BP 120/78; PULSE 88
[2022-07-28 19:46] VITALS: TEMP 37
[2022-07-28 19:48] VITALS: TEMP 37
[2022-07-28 19:55] VITALS: O2SAT 99
[2022-07-28 20:08] LABS: ROM Internal Control Test YES-OK TO RESULT pt. (Internal QC); ROM Patient Test Negative (Negative)
[2022-07-28 20:26] VITALS: BP 126/78; PULSE 83
--- NOTE | 2022-07-29 04:34 | OB.TRI.HP_ITS ---
HPI - General General Date of Service: 07/28/22 HPI Narrative AUDRA SALTER, is a 32 F who presents for early possible ROM and contractions. she has had incresased discharge or leaking throughout the day small amounts, no clearly large episode. she denies any vb admits good fm. she feels pelvic pressure and is having some contractions. Maternal Data Information LIONEL Calculator Estimated Delivery Date Method Current WG Current Estimate 08/25/22 LMP (Uncertain) 36w 1d Other Estimates 08/22/22 Ultrasound #1 36w 4d PFSH PFS Medical History (Updated 07/29/22 @ 04:[address] Anel Mckoy MD) No significant past medical history Ovarian cyst rupture Home Medications prenat.vits,choco,dby-bsgv-mmjpi ( Vitamin tablet) 1 tab PO QDAY 08/28/17 [History Last Taken 07/28/22 19:00] Allergy/AdvReac Type Severity Reaction Status Date / Time lactase [From Dairy Aid] AdvReac Mild Unknown Verified 07/05/22 10:56 gluten AdvReac Unknown Verified 07/05/22 10:56 lactose AdvReac Unknown Verified 07/05/22 10:56 Family History Father Cancer liver Grandmother Breast cancer Surgical History No significant past surgical history Social History adopted: No housing: house number of children: 2 pets and animals: Yes history of recent travel: No sexually active: Yes Smoking Status: Never smoker second hand exposure: No alcohol intake: never substance use type: does not use caffeine: No what type of physical activity do you participate in: none seatbelt use: always do you feel safe at home: Yes additional social history: [place] History 4 Elective abortions Hx Para 2 Spontaneous abortions Hx # Term Pregnancies Ectopic pregnancies Hx # Pregnancies Multiple births # of living children 2 Past Pregnancies Del. Date Name GA/Weeks Outcome Route Bth Weight Infant Gen Labor Lgth Anesthesia Del Locatn Provider FOB 01/09/18 Danielle 39 live - full term 7.8 Female othe r [facility] 10/27/19 Lucie 38 live - full term Female [facility] Dr. Anel Mckoy Visit Details Expected Delivery Route/Plan Labor Preferences- CB/BF classes: [] labor support person: [] labor intervention preferences: unmedicated, low intervention pain management options preferred:unmedicated cut cord/dad catch: [] : yes PP control planned: [] discussed possible routes of delivery and associated risks: [] special requests: [] Plans Covid status: discussed Flu vaccine: discussed Tdap vaccine: [] Rhogam: n/a LARC form signed: completed Problem list reviewed and updated with the most current plan of care details and appropriate orders placed. Relevant counseling for the gestational age provided. Continue routine care and follow up unless otherwise noted in visit notes/problem list details OB Flowsheet Initial Weight: Not Recorded Date -?-?-?-?-?-?-?-?-?-?-?-?- EGA Weight BP Urine Prot -?-?-?-?-?-?-?-?-?-?-?-?- Glucose FHR FuHt Pres Dilation -?-?-?-?-?-?-?-?-?-?-?-?- Effaced St Visit Note 01/23/22 -?-?-?-?-?-?--?-?-?-?-?-?- 9w 3d 156 lb 6 oz -?-?-?-?-?-?-?-?-?-?-?-?- 160 -?-?-?-?-?-?-?-?-?-?-?-?- JV- CRL consiste nt with LMP. pt unsure if she wants genetics. will let us know next visit. 02/19/22 -?-?-?-?-?-?-?-?-?-?-?-?- 13w 2d 153 lb 2 oz 108/60 Nega tive -?-?-?-?-?-?-?-?-?-?-?-?- Negative 160 -?-?-?-?-?-?-?-?-?-?-?-?- SM- no vb crampi ng needs to get labs 03/19/22 -?-?-?-?-?-?-?-?-?-?-?-?- 17w 2d 156 lb 98/60 Negative -?-?-?-?-?-?-?-?-?-?-?-?- Negative 150 -?-?-?-?-?-?-?-?-?-?-?-?- SM- no vb lof cr maping 04/18/22 -?-?-?-?-?-?-?-?-?-?-?-?- 21w 4d 162 lb 132/70 Negative -?-?-?-?-?-?-?-?-?-?-?-?- Negative 150 -?-?-?-?-?-?-?-?-?-?-?-?- Sm- no vb lof go od fm no regular ctx discussed previa 05/17/22 -?-?-?-?-?-?-?-?-?-?-?-?- 25w 5d 168 lb 117/65 Negative -?-?-?-?-?-?-?-?-?-?-?-?- Negative 156 26 -?-?-?-?-?-?-?-?-?-?-?-?- JV- no lof, vagi nal bleeding, or dec fm but did have some rectal bleeding when had a BM yesterday. pt to call if notices more blood. has us next month to look at placenta again. 06/04/22 -?--?-?-?-?-?-?-?-?-?-?-?- 28w 2d 171 lb 6 oz 109/68 Nega tive -?-?-?-?-?-?-?-?-?-?-?-?- Negative 140 28 -?-?-?-?-?-?-?-?-?-?-?-?- SM- no vb lof go od fm no regular ctx fu US next week 06/17/22 -?-?-?-?-?-?-?-?-?-?-?-?- 30w 1d 174 lb 8 oz 124/67 Nega tive -?-?-?-?-?-?-?-?-?-?-?-?- Negative 143 29 -?-?-?-?-?-?-?-?-?-?-?-?- LC- no lof,vb,ct x. good FM. larc signed. results pending from ultrasound. per pt, previa resolved, 70% for growth. LC- no lof,vb,ctx. good FM. larc signed. rpt u/s 06/11: previa resolved, 70% for growth. 07/05/22 -?-?-?-?-?-?-?-?-?-?-?-?- 32w 5d 176 lb 6 oz 108/69 Nega tive -?-?-?-?-?-?-?-?-?-?-?-?- Negative 141 31 -?-?-?-?-?-?-?-?-?-?-?-?- JV- no lof, vagi nal bleeding. or dec fm. Lots of pressure but nothing that is rhythmic 07/17/22 -?-?-?-?-?-?-?-?-?-?-?-?- 34w 3d 178 lb 104/68 Negative -?-?-?-?-?-?-?-?-?-?-?-?- Negative 155 33 -?-?-?-?-?-?-?-?-?-?-?-?- JV- no lof, vagi nal bleeding, or dec fm. gbs next visit. no complaints other than restless legs. 07/28/22 -?-?-?-?-?-?-?-?-?-?-?-?- 36w 0d 180 lb 143/73 120/78 126/78 -?-?-?-?-?-?-?-?-?-?-?-?- -?-?-?-?-?-?-?-?-?-?-?-?- ROS Constitutional Constitutional: Reports systems reviewed and no addt'l complaints, except as documented and as per HPI ENT HEENT: Reports systems reviewed and no addt'l complaints, except as documented Cardiovascular Cardiovascular: Reports systems reviewed and no addt'l complaints, except as documented Respiratory/Chest Respiratory/Chest: Reports systems reviewed and no addt'l complaints, except as documented Gastrointestinal Gastrointestinal: Reports as per HPI Genitourinary Genitourinary: Reports as per HPI Musculoskeletal Musculoskeletal: Reports systems reviewed and no addt'l complaints, except as documented Integumentary Integumentary: Reports systems reviewed and no addt'l complaints, except as doc umented Neurologic Neurologic: Reports systems reviewed and no addt'l complaints, except as documented Physical Exam Const alert, oriented x3 and no apparent distress HEENT Head and Scalp: normocephalic and atraumatic Neck full ROM and no lymphadenopathy Chest inspection of chest normal Resp normal respiratory effort GI GI Narrative: gravid, abdomen nontender, AGA Manual OB Exam: dilated 1, effaced 60 and station -2 NST FHR Rate Baby A Baseline: 140 Variability:: Moderate Accelerations:: 15 x 15 Decelerations:: None NST Reactive:: Yes FHR Category:: Category I Uterine Activity:: regular q 3-5 Assessment & Plan (1) uterine contractions in third trimester, antepartum: PLAN: seen in triage 07/28, membranes intact, no cervical change dc home labor precuations Charges/Coding Multi Select Codes Visit Charges Office Visit/Consults: 58360 OV L3 Est Urinary/Genital Urinary/Genital CPT Codes: 67558-31 non-stress test Interp
== END 2022-07-28 20:50 | disposition home or self-care (01) ==
LOC: WPOUT 18:18 → WP 18:19
PROVIDERS: PCP Family Medicine; Visit Provider Obstetrics & Gynecology
DX: O47.03 False labor before 37 completed weeks of gestation, third trimester (principal); Z3A.36 36 weeks gestation of pregnancy
CPT/HCPCS: 84112; 99218; G0378

== ENCOUNTER → 2022-07-31 | Outpatient (CLI) | payer OTHER, MEDICAID, SELFPAY | END | disposition home or self-care (01) | LOC: LABSPEC 13:22 | PROVIDERS: PCP Family Medicine; Visit Provider Registered Nurse | DX: Z34.90 Encounter for supervision of normal pregnancy, unspecified, unspecified trimester (principal) | CPT/HCPCS: 87081 ==

== ENCOUNTER 2022-08-05 21:20 | Outpatient (CLI) | payer OTHER, MEDICAID, SELFPAY ==
--- NOTE | 2022-08-05 21:30 | OB.TRI.HP_ITS ---
HPI - General HPI Narrative AUDRA SALTER, is a 32 F who presents with contractions to Maternal Data Information LIONEL Calculator Estimated Delivery Date Method Current WG Current Estimate 08/25/22 LMP (Uncertain) 37w 3d Other Estimates 08/22/22 Ultrasound #1 37w 6d PFSH PFSH Medical History No significant past medical history Ovarian cyst rupture Home Medications prenat.vits,choco,mew-dbum-semqe ( Vitamin tablet) 1 tab PO QDAY 08/28/17 [History Last Taken 07/28/22 19:00] fluconazole 150 mg tablet (Diflucan) 150 mg PO Q3D 2 doses #2 tabs 07/31/22 [Rx Last Taken 08/05/22 19:00] Family History Father Cancer liver Grandmother Breast cancer Surgical History No significant past surgical history Social History adopted: No housing: house number of children: 2 pets and animals: Yes history of recent travel: No sexually active: Yes Smoking Status: Never smoker second hand exposure: No alcohol intake: never substance use type: does not use caffeine: No what type of physical activity do you participate in: none seatbelt use: always do you feel safe at home: Yes additional social history: Zuhair History 4 Elective abortions Hx Para 2 Spontaneous abortions Hx # Term Pregnancies Ectopic pregnancies Hx # Pregnancies Multiple births # of living children 2 Past Pregnancies Del. Date Name GA/Weeks Outcome Route Bth Weight Infant Gen Labor Lgth Anesthesia Del Locatn Provider FOB 01/09/18 Danielle 39 live - full term 7.8 Female othe r [facility] Monica Faustin 10/27/19 Lucie 38 live - full term Female [facility] Dr. Anel Mckoy Visit Details Expected Delivery Route/Plan Labor Preferences- CB/BF classes: [] labor support person: [] labor intervention preferences: unmedicated, low intervention pain management options preferred:unmedicated cut cord/dad catch: [] : yes PP control planned: [] discussed possible routes of delivery and associated risks: [] special requests: [] Plans Covid status: discussed Flu vaccine: discussed Tdap vaccine: [] Rhogam: n/a LARC form signed: completed Problem list reviewed and updated with the most current plan of care details and appropriate orders placed. Relevant counseling for the gestational age provided. Continue routine care and follow up unless otherwise noted in visit notes/problem list details OB Flowsheet Initial Weight: Not Recorded Date -?-?--?-?-?-?-?-?-?-?-?-?- EGA Weight BP Urine Prot -?-?-?-?-?-?-?-?-?-?-?-?- Glucose FHR FuHt Pres Dilation -?-?-?-?-?-?-?-?-?-?-?-?- Effaced St Visit Note 01/23/22 -?-?-?-?-?-?-?-?-?-?-?-?- 9w 3d 156 lb 6 oz -?-?-?-?-?-?-?-?-?-?-?-?- 160 -?-?-?-?-?-?-?-?-?-?-?-?- JV- CRL consiste nt with LMP. pt unsure if she wants genetics. will let us know next visit. 02/19/22 -?-?-?-?-?-?-?-?-?-?-?-?- 13w 2d 153 lb 2 oz 108/60 Nega tive -?-?-?-?-?-?-?-?-?-?-?-?- Negative 160 -?-?-?-?-?-?-?-?-?-?-?-?- SM- no vb parul sewell needs to get labs 03/19/22 -?-?-?-?-?-?-?-?-?-?-?-?- 17w 2d 156 lb 98/60 Negative -?-?-?-?-?-?-?-?-?-?-?-?- Negative 150 -?-?-?-?-?-?-?-?-?-?-?-?- SM- no vb lof cr maping 04/18/22 -?-?-?-?-?-?-?-?-?-?-?-?- 21w 4d 162 lb 132/70 Negative -?-?-?-?-?-?-?-?-?-?-?-?- Negative 150 -?-?-?-?-?-?-?-?-?-?-?-?- Sm- no vb lof go od fm no regular ctx discussed previa 05/17/22 -?-?-?-?-?-?-?-?-?-?-?-?- 25w 5d 168 lb 117/65 Negative -?-?-?-?-?-?-?-?-?-?-?-?- Negative 156 26 -?-?-?-?-?-?-?-?-?-?-?-?- JV- no lof, vagi nal bleeding, or dec fm but did have some rectal bleeding when had a BM yesterday. pt to call if notices more blood. has us next month to look at placenta again. 06/04/22 -?-?-?-?-?-?-?-?-?-?-?-?- 28w 2d 171 lb 6 oz 109/68 Nega tive -?-?-?--?-?-?-?-?-?-?-?-?- Negative 140 28 -?-?-?-?-?-?-?-?-?-?-?-?- SM- no vb lof go od fm no regular ctx fu US next week 06/17/22 -?-?-?-?-?-?-?-?-?-?-?-?- 30w 1d 174 lb 8 oz 124/67 Nega tive -?-?-?-?-?-?-?-?-?-?-?-?- Negative 143 29 -?-?-?-?-?-?-?-?-?-?-?-?- LC- no lof,vb,ct x. good FM. larc signed. results pending from ultrasound. per pt, previa resolved, 70% for growth. LC- no lof,vb,ctx. good FM. larc signed. rpt u/s 06/11: previa resolved, 70% for growth. 07/05/22 -?-?--?-?-?-?-?-?-?-?-?-?- 32w 5d 176 lb 6 oz 108/69 Nega tive -?-?-?-?-?-?-?-?-?-?-?-?- Negative 141 31 -?-?-?-?-?-?-?-?-?-?-?-?- JV- no lof, vagi nal bleeding. or dec fm. Lots of pressure but nothing that is rhythmic 07/17/22 -?-?-?-?-?-?-?-?-?-?-?-?- 34w 3d 178 lb 104/68 Negative -?-?-?-?-?-?-?-?-?-?-?-?- Negative 155 33 -?-?-?-?-?-?-?-?-?-?-?-?- JV- no lof, vagi nal bleeding, or dec fm. gbs next visit. no complaints other than restless legs. 07/31/22 -?-?-?-?-?-?-?-?-?-?-?-?- 36w 3d 181 lb 2 oz 112/76 Nega tive -?-?-?-?-?-?-?-?-?-?-?-?- Negative 150 36 1 -?-?-?-?-?-?-?-?-?-?-?-?- 60 -3 LC- no lof ,vb,ctx. good fm. having vag irritation/itching. +white yu d/c. GBS collected today. diflucan rx sent. NST FHR Rate Baby A Baseline: 135 Variability:: Moderate Accelerations:: 15 x 15 Decelerations:: None NST Reactive:: Yes FHR Category:: Category I Uterine Activity:: irreg Assessment & Plan (1) uterine contractions in third trimester, antepartum: PLAN: Patient presents for triage evaluation secondary to contractions FHT: Moderate variability reactive no decelerations category I tracing [place]: irreg Contractions Assessment and plan: Reactive NST, unchanged cervical exam. reassuring maternal and status patient discharged to home to follow-up in office and PRN. See problem list details for additional plan information. (2) : QUALIFIERS: Weeks of gestation: 36 weeks Qualified Code(s): Z3A.3 6 - 36 weeks gestation of COMMENT: genetic and carrier screening declined. anatomy reviewed (3) Supervision of normal : COMMENT: PRR LIONEL 08/25/22 surprise Lucie Morejon : Zuhair Charges/Coding Procedures Urinary/Genital [id number]: 21502-30 non-stress test Interp
--- NOTE | 2022-08-05 21:30 | OB.TRI.NOTE ---
HPI - General HPI Narrative AUDRA SALTER, is a 32 F who presents with contractions to Maternal Data Information LIONEL Calculator Estimated Delivery Date Method Current WG Current Estimate 08/25/22 LMP (Uncertain) 37w 3d Other Estimates 08/22/22 Ultrasound #1 37w 6d PFSH PFSH Medical History No significant past medical history Ovarian cyst rupture Home Medications prenat.vits,choco,edn-qlye-iprhb ( Vitamin tablet) 1 tab PO QDAY 08/28/17 [History Last Taken 07/28/22 19:00] fluconazole 150 mg tablet (Diflucan) 150 mg PO Q3D 2 doses #2 tabs 07/31/22 [Rx Last Taken 08/05/22 19:00] Family History Father Cancer liver Grandmother Breast cancer Surgical History No significant past surgical history Social History adopted: No housing: house number of children: 2 pets and animals: Yes history of recent travel: No sexually active: Yes Smoking Status: Never smoker second hand exposure: No alcohol intake: never substance use type: does not use caffeine: No what type of physical activity do you participate in: none seatbelt use: always do you feel safe at home: Yes additional social history: Zuhair History 4 Elective abortions Hx Para 2 Spontaneous abortions Hx # Term Pregnancies Ectopic pregnancies Hx # Pregnancies Multiple births # of living children 2 Past Pregnancies Del. Date Name GA/Weeks Outcome Route Bth Weight Infant Gen Labor Lgth Anesthesia Del Locatn Provider FOB 01/09/18 Danielle 39 live - full term 7.8 Female other [facility] Monica Faustin 10/27/19 Lucie 38 live - full term Female [facility] Dr. Anel Mckoy Visit Details Expected Delivery Route/Plan Labor Preferences- CB/BF classes: [] labor support person: [] labor intervention preferences: unmedicated, low intervention pain management options preferred:unmedicated cut cord/dad catch: [] : yes PP control planned: [] discussed possible routes of delivery and associated risks: [] special requests: [] Plans Covid status: discussed Flu vaccine: discussed Tdap vaccine: [] Rhogam: n/a LARC form signed: completed Problem list reviewed and updated with the most current plan of care details and appropriate orders placed. Relevant counseling for the gestational age provided. Continue routine care and follow up unless otherwise noted in visit notes/problem list details OB Flowsheet Initial Weight: Not Recorded Date <del>?</del> EGA Weight BP Urine Prot <del>?</del> Glucose FHR FuHt Pres Dilation <del>?</del> Effaced St Visit Note 01/23/22 <del>?</del> 9w 3d 156 lb 6 oz <del>?</del> 160 <del>?</del> JV- CRL consistent with LMP. pt unsure if she wants genetics. will let us know next visit. 02/19/22 <del>?</del> 13w 2d 153 lb 2 oz 108/60 Negative <del>?</del> Negative 160 <del>?</del> SM- no vb cramping needs to get labs 03/19/22 <del>?</del> 17w 2d 156 lb 98/60 Negative <del>?</del> Negative 150 <del>?</del> SM- no vb lof crmaping 04/18/22 <del>?</del> 21w 4d 162 lb 132/70 Negative <del>?</del> Negative 150 <del>?</del> Sm- no vb lof good fm no regular ctx discussed previa 05/17/22 <del>?</del> 25w 5d 168 lb 117/65 Negative <del>?</del> Negative 156 26 <del>?</del> JV- no lof, vaginal bleeding, or dec fm but did have some rectal bleeding when had a BM yesterday. pt to call if notices more blood. has us next month to look at placenta again. 06/04/22 <del>?</del> 28w 2d 171 lb 6 oz 109/68 Negative <del>?</del> Negative 140 28 <del>?</del> SM- no vb lof good fm no regular ctx fu US next week 06/17/22 <del>?</del> 30w 1d 174 lb 8 oz 124/67 Negative <del>?</del> Negative 143 29 <del>?</del> LC- no lof,vb,ctx. good FM. larc signed. results pending from ultrasound. per pt, previa resolved, 70% for growth. LC- no lof,vb,ctx. good FM. larc signed. rpt u/s 06/11: previa resolved, 70% for growth. 07/05/22 <del>?</del> 32w 5d 176 lb 6 oz 108/69 Negative <del>?</del> Negative 141 31 <del>?</del> JV- no lof, vaginal bleeding. or dec fm. Lots of pressure but nothing that is rhythmic 07/17/22 <del>?</del> 34w 3d 178 lb 104/68 Negative <del>?</del> Negative 155 33 <del>?</del> JV- no lof, vaginal bleeding, or dec fm. gbs next visit. no complaints other than restless legs. 07/31/22 <del>?</del> 36w 3d 181 lb 2 oz 112/76 Negative <del>?</del> Negative 150 36 1 <del>?</del> 60 -3 LC- no lof,vb,ctx. good fm. having vag irritation/itching. +white curdy d/c. GBS collected today. diflucan rx sent. NST FHR Rate Baby A Baseline: 135 Variability:: Moderate Accelerations:: 15 x 15 Decelerations:: None NST Reactive:: Yes FHR Category:: Category I Uterine Activity:: irreg Assessment & Plan (1) uterine contractions in third trimester, antepartum: PLAN: Patient presents for triage evaluation secondary to contractions FHT: Moderate variability reactive no decelerations category I tracing [place]: irreg Contractions Assessment and plan: Reactive NST, unchanged cervical exam. reassuring maternal and status patient discharged to home to follow-up in office and PRN. See problem list details for additional plan information. (2) : QUALIFIERS: Weeks of gestation: 36 weeks Qualified Code(s): Z3A.36 - 36 weeks gestation of COMMENT: genetic and carrier screening declined. anatomy reviewed (3) Supervision of normal : COMMENT: PRR LIONEL 08/25/22 surprise Lucie Morejon : Zuhair Charges/Coding Procedures Urinary/Genital 52xxx-59xxx: 89736-03 non-stress test Interp
[2022-08-05 21:34] VITALS: PULSE 86; O2SAT 99
[2022-08-05 21:35] VITALS: BP 126/77; PULSE 85
[2022-08-05 21:40] VITALS: BMI 29.7
== END 2022-08-05 22:24 | disposition home or self-care (01) ==
LOC: WPOUT 21:26 → WP 21:27
PROVIDERS: PCP Family Medicine; Visit Provider Registered Nurse
DX: O47.03 False labor before 37 completed weeks of gestation, third trimester (principal); Z3A.36 36 weeks gestation of pregnancy
CPT/HCPCS: 59025; 59050; 99218; G0378

== ENCOUNTER 2022-08-09 20:10 | Inpatient (IN) | payer OTHER, MEDICAID, SELFPAY ==
[2022-08-09] VITALS (9 sets, daily range): BP systolic 129–140; BP diastolic 71–76; PULSE 73–93; TEMP 36.7–37.2; O2SAT 98–99; BMI 29.9
[2022-08-09 20:11] LABS: ROM Internal Control Test YES-OK TO RESULT pt. (Internal QC)
[2022-08-09 20:12] LABS: ROM Patient Test POSITIVE (Negative)
[2022-08-09] MEDS: Lactated Ringers 1,000 ML 50 ML IV (20:55)
[2022-08-09 21:12] LABS: Absolute Lymphocyte Count 1.24 X10^3/uL (0.83-4.51); Absolute Neutrophil Count 6.7 X10^3/uL (2.0-7.7); Basophil# 0.01 X10^3/uL; Basophil% 0.1 % (0-1); Eosinophil# 0.03 X10^3/uL; Eosinophils% 0.4 % (0-5); Hematocrit 34.2 % (37-47); Hemoglobin 11.5 g/dL (12.0-15.0); Lymphocyte # 1.24 X10^3/ul (0.83-4.51); Lymphocyte % 14.6 % (19-41); Mean Corp Hgb Conc 33.6 g/dL (32-36); Mean Corpuscular Hgb 30.7 pg (27.0-32.0); Mean Corpuscular Volume 91.2 fL (81-99); Mean Platelet Vol. 8.9 fl (6.2-12.0); Monocyte# 0.52 X10^3/uL; Monocyte% 6.1 % (0-10); NRBC Flagged by Analyzer 0 % (0-5); Neutrophil # 6.67 X10^3/uL (2.7-7.7); Neutrophil % 78.4 % (47-70); Platelet Count 271 K/mm3 (150-450); RBC Distribution Width CV 13.2 % (11.6-14.6); RBC Distribution Width SD 44.2 fl (35.1-43.9); Red Blood Count 3.75 M/mm3 (4.2-5.4); White Blood Count 8.5 K/mm3 (4.4-11.0)
[2022-08-10] VITALS (23 sets, daily range): BP systolic 110–146; BP diastolic 47–90; PULSE 80–112; RESP 15–16; TEMP 36.6–37.3; O2SAT 98
[2022-08-10] MEDS: Oxytocin 10 UNITS/ML Vial IM (05:08)
[2022-08-10] MEDS: Ketorolac 30 MG/ML Syringe IV (05:15)
--- NOTE | 2022-08-10 05:29 | DCINST_ITS ---
Discharge Instructions Follow Up Care Test Results: Test results from this visit will be discussed in further detail at your follow- up appointment, if applicable. Discharge Plan Admission Admit Date/Time: 08/09/22 20:10 Attending Provider: Anel Mckoy Primary Care Provider: Sultana Shore Discharge Orders/Prescriptions Prescriptions: No Action prenat.vits,choco,kzk-jpeb-inwzc [ Vitamin] tablet 1 tab PO QDAY Referrals / Follow Up: Sultana Shore MD [Primary Care Provider] -
--- NOTE | 2022-08-10 05:29 | HP.PCM.OB_ITS ---
HPI - General General Date of Admission: 08/09/22 HPI Narrative AUDRA SALTER, is a 32 F who presents IAL regular ctx no vb lof good fm Maternal Data Information LIONEL Calculator Estimated Delivery Date Method Current WG Current Estimate 08/25/22 LMP (Uncertain) 37w 6d Other Estimates 08/22/22 Ultrasound #1 38w 2d PFSH PFSH Medical History No significant past medical history Ovarian cyst rupture Home Medications prenat.vits,choco,nct-cowc-vdwww ( Vitamin tablet) 1 tab PO QDAY 08/28/17 [History Last Taken 08/08/22 21:00 1 tab] Allergy/AdvReac Type Severity Reaction Status Date / Time No Known Allergies Allergy Verified 08/09/22 21:15 Family History Father Cancer liver Grandmother Breast cancer Surgical History No significant past surgical history Social History adopted: No housing: house number of children: 2 pets and animals: Yes history of recent travel: No sexually active: Yes Smoking Status: Never smoker second hand exposure: No alcohol intake: never substance use type: does not use caffeine: No what type of physical activity do you participate in: none seatbelt use: always do you feel safe at home: Yes additional social history: Zuhair History 4 Elective abortions Hx Para 2 Spontaneous abortions Hx # Term Pregnancies Ectopic pregnancies Hx # Pregnancies Multiple births # of living children 2 Past Pregnancies Del. Date Name GA/Weeks Outcome Route Bth Weight Gen Labor Lgth Anes thesia Del Locatn Provider FOB 01/09/18 Danielle 39 live - full term 7.8 Female othe r [facility] Monica Faustin 10/27/19 Lucie 38 live - full term Female [facility] Dr. Anel Mckoy Visit Details Expected Delivery Route/Plan Labor Preferences- CB/BF classes: [] labor support person: [] labor intervention preferences: unmedicated, low intervention pain management options preferred:unmedicated cut cord/dad catch: [] : yes PP control planned: [] discussed possible routes of delivery and associated risks: [] special requests: [] Plans Covid status: discussed Flu vaccine: discussed Tdap vaccine: [] Rhogam: n/a LARC form signed: completed Problem list reviewed and updated with the most current plan of care details and appropriate orders placed. Relevant counseling for the gestational age provided. Continue routine care and follow up unless otherwise noted in visit notes/problem list details OB Flowsheet Initial Weight: Not Recorded Date -?-?-?-?-?-?-?-?-?-?-?-?- EGA Weight BP Urine Prot -?-?-?-?-?-?-?-?-?-?-?-?- Glucose FHR FuHt Pres Dilation -?-?-?-?-?-?-?-?-?-?-?-?- Effaced St Visit Note 01/23/22 -?-?-?-?-?-?-?-?-?-?-?-?- 9w 3d 156 lb 6 oz -?-?-?-?-?-?-?-?-?-?-?-?- 160 -?-?-?-?-?-?-?-?-?-?-?-?- JV- CRL consiste nt with LMP. pt unsure if she wants genetics. will let us know next visit. 02/19/22 -?-?-?-?-?-?-?-?-?-?-?-?- 13w 2d 153 lb 2 oz 108/60 Nega tive -?-?-?-?-?-?-?-?-?-?-?-?- Negative 160 -?-?-?-?-?-?-?-?-?-?-?-?- SM- no vb parul sewell needs to get labs 03/19/22 -?-?-?-?-?-?-?--?-?-?-?-?- 17w 2d 156 lb 98/60 Negative -?-?-?-?-?-?-?-?-?-?-?-?- Negative 150 -?-?-?-?-?-?-?-?-?-?-?-?- SM- no vb lof cr maping 04/18/22 -?-?-?-?-?-?-?-?-?-?-?-?- 21w 4d 162 lb 132/70 Negative -?-?-?-?-?-?-?-?-?-?-?-?- Negative 150 -?-?-?-?-?-?-?-?-?-?-?-?- Sm- no vb lof go od fm no regular ctx discussed previa 05/17/22 -?-?-?-?-?-?-?-?-?-?-?-?- 25w 5d 168 lb 117/65 Negative -?-?-?-?-?-?-?-?-?-?-?-?- Negative 156 26 -?-?-?-?-?-?-?-?-?-?-?-?- JV- no lof, vagi nal bleeding, or dec fm but did have some rectal bleeding when had a BM yesterday. pt to call if notices more blood. has us next month to look at placenta again. 06/04/22 -?-?-?-?-?-?-?-?-?-?-?-?- 28w 2d 171 lb 6 oz 109/68 Nega tive -?-?-?-?-?-?-?-?-?-?-?-?- Negative 140 28 -?-?-?-?-?-?-?-?-?-?-?-?- SM- no vb lof go od fm no regular ctx fu US next week 06/17/22 -?-?-?-?-?-?-?-?-?-?-?-?- 30w 1d 174 lb 8 oz 124/67 Nega tive -?-?-?-?-?-?-?-?-?-?-?-?- Negative 143 29 -?-?-?-?-?-?-?-?-?-?-?-?- LC- no lof,vb,ct x. good FM. larc signed. results pending from ultrasound. per pt, previa resolved, 70% for growth. LC- no lof,vb,ctx. good FM. larc signed. rpt u/s 06/11: previa resolved, 70% for growth. 07/05/22 -?-?-?-?-?-?-?-?-?-?-?-?- 32w 5d 176 lb 6 oz 108/69 Nega tive -?-?-?-?-?-?-?-?-?-?-?-?- Negative 141 31 -?-?-?-?-?-?-?-?-?-?-?-?- JV- no lof, vagi nal bleeding. or dec fm. Lots of pressure but nothing that is rhythmic 07/17/22 -?-?-?-?-?-?-?-?-?-?-?-?- 34w 3d 178 lb 104/68 Negative -?-?-?-?-?-?-?-?-?-?-?-?- Negative 155 33 -?-?--?-?-?-?-?-?-?-?-?-?- JV- no lof, vagi nal bleeding, or dec fm. gbs next visit. no complaints other than restless legs. 07/31/22 -?-?-?-?-?-?-?-?-?-?-?-?- 36w 3d 181 lb 2 oz 112/76 Nega tive -?-?-?-?-?-?-?-?-?-?-?-?- Negative 150 36 1 -?-?-?-?-?-?-?-?-?-?-?-?- 60 -3 LC- no lof ,vb,ctx. good fm. having vag irritation/itching. +white curdy d/c. GBS collected today. diflucan rx sent. 08/07/22 -?-?-?-?-?-?-?-?-?-?-?-?- 37w 3d 181 lb 2 oz 116/80 Nega tive -?-?-?-?-?-?-?-?-?-?-?-?- Negative 140 37 2 -?-?-?-?-?-?-?-?-?-?-?-?- 60 -2 LC- no lof ,vb, occ ctx. good fm. no concerns. 08/09/22 -?-?-?-?-?-?-?-?-?-?-?-?- 37w 5d 180 lb 3.2 oz 137/74 140/76 140/71 129/72 134/75 122/71 110/56 126/58 118/70 146/90 146/83 137/78 135/81 142/88 130/82 119/47 126/73 138/68 -?-?-?-?-?-?-?-?-?-?-?-?- -?-?-?-?-?-?-?-?-?-?-?-?- NST FHR Rate Baby A Baseline: 140 Variability:: Moderate Accelerations:: 15 x 15 Decelerations:: None NST Reactive:: Yes FHR Category:: Category I Uterine Activity:: q3-5 ROS Constitutional Constitutional: Reports systems reviewed and no addt'l complaints, except as documented ENT HEENT: Reports systems reviewed and no addt'l complaints, except as documented Cardiovascular Cardiovascular: Reports systems reviewed and no addt'l complaints, except as documented Respiratory/Chest Respiratory/Chest: Reports systems reviewed and no addt'l complaints, except as documented Gastrointestinal Gastrointestinal: Reports systems reviewed and no addt'l complaints, except as documented and nausea; Denies abdominal pain Genitourinary Genitourinary: Reports systems reviewed and no addt'l complaints, except as documented, contractions Details: present and frequency (regular ) and movement Details: present Musculoskeletal Musculoskeletal: Reports systems reviewed and no addt'l complaints, except as documented Integumentary Integumentary: Reports as per HPI Neurologic Neurologic: Reports systems reviewed and no addt'l complaints, except as documented Endocrine Endocrinology: Reports systems reviewed and no addt'l complaints, except as documented Vital Signs Vital Signs Vital Signs: 08/09/22 19:52 08/09/22 19:52 08/09/22 19:52 Temperature 99.0 F Temperature Source Pulse Rate 89 Blood Pressure 137/74 H BP Systolic 137 BP Diastolic 74 Pulse Ox 08/09/22 19:52 08/09/22 19:52 08/09/22 20:11 Temperature 99.0 F Temperature Source Temporal Pulse Rate 93 Blood Pressure BP Systolic BP Diastolic Pulse Ox 08/09/22 20:11 08/09/22 20:16 08/09/22 20:16 Temperature Temperature Source Pulse Rate 91 Blood Pressure BP Systolic BP Diastolic Pulse Ox 99 99 08/09/22 20:21 08/09/22 20:21 08/09/22 20:26 Temperature Temperature Source Pulse Rate 93 85 Blood Pressure BP Systolic BP Diastolic Pulse Ox 98 08/09/22 20:26 08/09/22 21:08 08/09/22 21:08 Temperature Temperature Source Pulse Rate 81 Blood Pressure 140/76 H BP Systolic 140 BP Diastolic 76 Pulse Ox 99 08/09/22 21:09 08/09/22 22:26 08/09/22 22:26 Temperature 98.1 F Temperature Source Pulse Rate 81 Blood Pressure 140/71 H BP Systolic 140 BP Diastolic 71 Pulse Ox 08/09/22 22:26 08/09/22 23:06 08/09/22 23:06 Temperature 98.6 F 98.2 F Temperature Source Pulse Rate Blood Pressure 129/72 H BP Systolic 129 BP Diastolic 72 Pulse Ox 08/09/22 23:06 08/10/22 00:07 08/10/22 00:07 Temperature Temperature Source Pulse Rate 73 83 Blood Pressure 134/75 H BP Systolic 134 BP Diastolic 75 Pulse Ox 08/10/22 00:06 08/10/22 01:17 08/10/22 01:17 Temperature 98.1 F Temperature Source Pulse Rate 86 Blood Pressure 122/71 H BP Systolic 122 BP Diastolic 71 Pulse Ox 08/10/22 01:17 08/10/22 02:04 08/10/22 02:05 Temperature 98.1 F 98.4 F Temperature Source Pulse Rate Blood Pressure 110/56 L BP Systolic 110 BP Diastolic 56 Pulse Ox 08/10/22 02:05 08/10/22 03:08 08/10/22 03:09 Temperature Temperature Source Temporal Pulse Rate 84 Blood Pressure 126/58 H BP Systolic 126 BP Diastolic 58 Pulse Ox 08/10/22 03:09 08/10/22 03:09 08/10/22 04:06 Temperature 98.4 F Temperature Source Pulse Rate 81 Blood Pressure 118/70 BP Systolic 118 BP Diastolic 70 Pulse Ox 08/10/22 04:06 08/10/22 04:06 08/10/22 04:06 Temperature 99.1 F Temperature Source Temporal Pulse Rate 93 Blood Pressure BP Systolic BP Diastolic Pulse Ox 08/10/22 05:12 08/10/22 05:12 08/10/22 05:16 Temperature 99.1 F Temperature Source Pulse Rate 104 H Blood Pressure 146/90 H BP Systolic 146 BP Diastolic 90 Pulse Ox 08/10/22 05:29 08/10/22 05:29 Temperature Temperature Source Pulse Rate 88 Blood Pressure 146/83 H BP Systolic 146 BP Diastolic 83 Pulse Ox Weight Weight: 180 lb 3.2 oz Body Mass Index (BMI) 29.9 Physical Exam Const alert, oriented x3 and healthy appearing Constitutional Narrative: uncomfortable with contractions HEENT normocephalic and moist oral mucous membranes Head and Scalp: atraumatic Neck full ROM, no lymphadenopathy, supple and thyroid normal General: trachea midline Thyroid: thyroid normal Lymph Lymphatic: no lymphadenopathy noted Chest inspection of chest normal Resp normal respiratory effort Cardio regular rate GI normal to inspection, nondistended, normoactive bowel sounds, soft to palpation and non-tender Inspection: gravid external exam normal Bimanual Exam - Vag & Uterus: uterus non-tender Manual OB Exam: estimated gestational size appropriate, presentation cephalic, dilated, effaced and station Extremity normal to inspection General Extremity: Negative for edema Skin no rashes or lesions noted Neuro deep tendon reflexes 2+ bilaterally Motor Exam: strength 5/5 throughout and clonus absent Psych mental status grossly normal Labs Labs Labs: Blood Type B POSITIVE Antibody Screen NEGATIVE Hct 34.2 % (37-47) L Hgb 11.5 g/dL (12.0-15.0) L Pap Smear Negative Obstetrics US Syphilis Total Ab Non-reactive Rubella IgG Antibody Reactive (Nonreactive) Hep Bs Antigen Non-Reactive (Nonreactive) Chlamydia DNA (BINH) Negative (Negative) Neisseria gonorrhoeae DNA (BINH) Negative (Negative) HIV 1&2 Antibody Non-Reactive (Nonreactive) Glucose 1 Hr 50 gm 96 mg/dL (70-140) Group B Strep DNA Negative (Negative) Rhogam given: No Miscellaneous Test Assessment & Plan (1) : QUALIFIERS: Weeks of gestation: 37 weeks Qualified Code(s): Z3A.37 - 37 weeks gestation of COMMENT: genetic and carrier screening declined. anatomy reviewed (2) Supervision of normal : COMMENT: PRR LIONEL 08/25/22 surprise Lucie Morejon : [place] (3) Active labor at term: PLAN: Plan Patient presents IAL, plan expectant management for , pitocin prn Pain management: none. GBS none. Management of any complications: none I have reviewed the [facility] and made any clinically relevant updates.
--- NOTE | 2022-08-10 05:29 | EX.PCM.OBRPT ---
Assessment & Plan (1) Supervision of normal : COMMENT: PRR LIONEL 08/25/22 surprise PC Lucie Santos : Z[place] (2) : QUALIFIERS: Weeks of gestation: 37 weeks Qualified Code(s): Z3A.37 - 37 weeks gestation of COMMENT: genetic and carrier screening declined. anatomy reviewed (3) Active labor at term: (4) Vaginal delivery: COMMENT: SM 39 IAL girl Maternal Data Information LIONEL Calculator Estimated Delivery Date Method Current WG Current Estimate 08/25/22 LMP (Uncertain) 37w 6d Other Estimates 08/22/22 Ultrasound #1 38w 2d Vaginal Delivery Operative Information Date of Procedure: 08/10/22 Pre-Operative Diagnosis: IAL Post-Operative Diagnosis: same Surgery / Procedure Performed: Spontaneous Vaginal Delivery Type of Anesthesia: Epidural Special Medications: none Estimated Blood Loss: 50 Fluids Replaced: crystalloid Findings Description of Procedure: Patient began pushing and delivered the head in the ALBARO presentation. The head was delivered atraumatically . The anterior and posterior shoulders delivered without complication followed by the rest of the and the was placed on the maternal abdomen. Delayed cord clamping was employed for approximately 60 seconds. Cord was clamped and cut and gentle traction was applied to the cord and the placenta delivered spontaneously immediately following it was noted to be intact with three-vessel cord. The perineum and vagina were inspected and noted to have no laceration. EBL was 50. Patient and infant tolerated delivery well. Presentation: ALBARO Amniotic Membrane Rupture Type: Spontaneous Amniotic Fluid Description: Clear Placental Delivery Description: Spontaneous Placenta Disposition: [facility] Cord Vessel Description: 3 Vessels Cord Entanglement: None Delayed Cord Clamping: Yes Post Vaginal Delivery Medications Given After Delivery: IV Pitocin Episiotomy Description: None Laceration: None Complication Complications: None Procedures Urinary/Genital [id number]: [id number] Vaginal Delivery global pkg
[2022-08-10] MEDS: 0.9% Saline Lock 10 ML Syringe IV (06:05)
[2022-08-10] MEDS: fentaNYL 100 MCG/2 ML Ampul 50 MCG IV (06:15)
[2022-08-10] MEDS: Prenatal Vits Tablet 1 TABLET PO (13:58)
[2022-08-10] MEDS: Acetaminophen 500 MG Tablet 1000 MG PO (17:06)
[2022-08-10] MEDS: Naproxen 500 MG Tablet PO (23:08)
[2022-08-11 04:09] VITALS: BP 141/87; PULSE 82; RESP 18; TEMP 36.6
[2022-08-11 08:15] VITALS: BP 117/67; PULSE 77; RESP 16; TEMP 36.6; O2SAT 97
--- NOTE | 2022-08-11 10:06 | PCM.DC.SUM ---
Providers Date of Admission: 08/09/22 Primary Care Physician: Dr. Sultana Shore MD Reason For Visit: VAGINAL DELIVERY Diagnosis Discharge Diagnosis (1) Supervision of normal : Status: Resolved Code(s): Z34.90 - Encounter for supervision of normal , unspecified, unspecified trimester (2) : Status: Resolved Code(s): Z34.90 - Encounter for supervision of normal , unspecified, unspecified trimester Qualifiers: Weeks of gestation: 37 weeks Qualified Code(s): Z3A.37 - 37 weeks gestation of (3) Active labor at term: Status: Resolved (4) Vaginal delivery: Status: Acute Code(s): O80 - Encounter for full-term uncomplicated delivery Medications at Discharge Home Medications prenat.vits,choco,qjb-yyis-uyrtm ( Vitamin tablet) 1 tab PO QDAY 08/28/17 Hospital Course Operations None Procedures - (vaginal delivery ) Summary of Care Provided Minutes Spent on Discharge: 15 Hospital Course: The patient was admitted in active labor and delivered a viable female on the morning of 08/10/22. She had no complications and on day #1 requested discharge to home. Physical Exam Const alert, oriented x3 and no apparent distress General Appearance: cooperative and comfortable Resp normal respiratory effort Cardio regular rate GI normal to inspection, nondistended, normoactive bowel sounds GI Narrative: uterus is firm below umbilicus Palpation: soft Back/Spine no CVA tenderness and thoraco-lumbar ROM normal Extremity normal to inspection, no clubbing, cyanosis or edema, no calf tenderness and no pedal edema Psych mental status grossly normal, thought process normal, cooperative, affect normal, speech normal, activity/motor behavior normal, denies homicidal ideation and denies suicidal ideation Weight / BMI Weight Weight: 180 lb 3.2 oz Body Mass Index (BMI) 29.9 ABG / Lab / Microbiology Data Result Diagrams: 08/09/22 20:55 D/C Instructions Discharge Diet: No restrictions Discharge Activity: May Shower May resume sexual activity in: 6-8 weeks Weight Bearing Status: Weight bearing as tolerated Lifting Restricted to (Lbs): 20 Call your doctor if your incision/area has: Sudden Increased Bleeding Call your doctor if you observe: Fever of 101 or Higher, Inability to urinate, Using more than 1 pad per hour, Shortness of breath, Dizziness, Fainting spells, Chest pain, Increased palpitations (irregular heartbeat) and Calf discomfort Please Follow Up With: Anel Mckoy MD When: 6 weeks Meaningful Use Info Meaningful Use Diagnoses (Choose all that apply): None applicable Discharge Plan Admission Admit Date/Time: 08/09/22 20:10 Primary Reason for Your Visit: vaginal delivery Attending Provider: Anel Mckoy Primary Care Provider: Sultana Shore Discharge Orders/Prescriptions Prescriptions: No Action prenat.vits,choco,hru-[id number] [ Vitamin] tablet 1 tab PO QDAY Referrals / Follow Up: Sultana Shore MD [Primary Care Provider] - Disposition Disposition (needs filled in before D/C Order can be placed): Home, Self Care
--- NOTE | 2022-08-11 12:10 | NURSING ---
Reviewed and agreed with [employer] charting.
== END 2022-08-11 12:10 | disposition home or self-care (01) | DRG 807 ==
LOC: WPOUT 20:17 → WP 20:17
PROVIDERS: Admitting Provider Obstetrics & Gynecology; PCP Family Medicine; Visit Provider Obstetrics & Gynecology
DX: O80 Encounter for full-term uncomplicated delivery (principal); Z37.0 Single live birth; Z3A.37 37 weeks gestation of pregnancy
CPT/HCPCS: 59025; 59050; 84112; 85025; 86850; 86900; 86901; 99218; J7120; A4216; G0378

== ENCOUNTER → 2023-10-09 | Outpatient (CLI) | payer BC, MEDICAID, SELFPAY ==
--- NOTE | 2023-10-09 12:27 | US_ITS ---
STUDY: ULTRASOUND OF THE FEMALE PELVIS - COMPLETE REASON FOR EXAM: Female, 33 years old. pain during ovulation LMP: 10/01/2023 TECHNIQUE: Transabdominal and Transvaginal TECHNICAL QUALITY: Adequate. COMPARISON: None. FINDINGS: The uterus is anteverted and is tilted to the left side of the pelvis. The uterus measures 8.5 x 5.8 x 4.9 cm. Normal uterine cervix. The endometrium measures 16 mm in thickness, and is heterogeneous (striated). There is no demonstrated endometrial mass. There is no demonstrated myometrial mass. I.U.D. - The patient does not have an I.U.D. The right ovary is visualized. The right ovary measures 2.9 x 2.7 x 2.8 cm. There a follicular cyst measuring 2.4 cm. There is normal arterial and normal venous vascularity. The left ovary is visualized. The left ovary measures 3.0 x 2.1 x 2.0 cm. There is no left ovarian cyst or ovarian mass. There is no visualized left adnexal mass or complex lesion. There is normal arterial and normal venous vascularity. There is no fluid in the cul-de-sac. The bladder is sonographically normal US/Pelvic (Non ) IMPRESSION: Endometrium measures 16 mm, but this can be normal for a still demonstrating female. The endometrium is heterogeneous which is a nonspecific finding. Simple 2.4 cm follicular cyst in the right ovary no specific follow-up needed. Sonographically normal left ovary and bladder Electronically Signed: Rodney Sumner MD at 14:06 EST ,
== END | disposition home or self-care (01) ==
LOC: OPUS 12:27
PROVIDERS: PCP Family Medicine; Referring Provider Obstetrics & Gynecology; Visit Provider Obstetrics & Gynecology
DX: N94.0 Mittelschmerz (principal)
CPT/HCPCS: 76830; 76856

== ENCOUNTER → 2024-12-27 | Outpatient (CLI) | payer BC, SELFPAY ==
--- NOTE | 2024-12-27 09:13 | RAD_ITS ---
PROCEDURE: ABDOMEN SINGLE VIEW 12/27/2024 REASON FOR EXAM: SITZ DAY 3 TECHNIQUE: Single view abdomen. COMPARISON: None. FINDINGS: Bowel gas: The bowel loops are normal in caliber. There is a single radiopaque Sitz marker overlying the mid transverse colon. Calcifications: None. Bones: The bones are unremarkable. Other: The lung bases are grossly unremarkable. RAD/Abdomen Single View IMPRESSION: Single radiopaque Sitz marker overlying the mid transverse colon. Reading Location: [id number]
== END | disposition home or self-care (01) ==
LOC: RAD 09:11
PROVIDERS: PCP Family Medicine
DX: K59.09 Other constipation (principal)
CPT/HCPCS: 74018

== ENCOUNTER → 2024-12-29 | Outpatient (CLI) | payer BC, SELFPAY ==
--- NOTE | 2024-12-29 09:13 | RAD_ITS ---
PROCEDURE: ABDOMEN SINGLE VIEW 12/29/2024 REASON FOR EXAM: SITZ DAY 5 TECHNIQUE: Single view abdomen. FINDINGS: Bowel gas: Bowel gas pattern is normal. No evidence of bowel obstruction. Calcifications: No suspicious calcifications. Bones: The bones are unremarkable. Other: 1 remaining Sitz marker in the left side of the abdomen likely in the descending colon. RAD/Abdomen Single View IMPRESSION: 1 remaining Sitz marker in the descending colon. Reading Location: [id number]
== END | disposition home or self-care (01) ==
PROVIDERS: PCP Family Medicine
DX: K59.09 Other constipation (principal)
CPT/HCPCS: 74018

== ENCOUNTER 2025-01-11 11:21 | Day surgery (SDC) | payer BC, SELFPAY ==
[2025-01-11] VITALS (7 sets, daily range): BP systolic 94–114; BP diastolic 52–66; PULSE 62–73; RESP 16–17; TEMP 36.3–36.4; O2SAT 97–100; BMI 25.3
[2025-01-11] MEDS: Lactated Ringers 1,000 ML 15 ML IV (11:50)
[2025-01-11 11:51] LABS: Internal QC Validated? YES +Cl - CLEAR BKGD; Pregnancy, Urine Negative Negative
--- NOTE | 2025-01-11 12:20 | PCM.PRE.AN2 ---
ASA Classification* ASA Classification ASA Classification: 1 Assessment & Plan Anesthesia* Anesthesia Assessment Anesthesia Assessment: Discussed sedation and/or anesthesia options, risks, benefits, and alternatives with patient/parents/legal guardian/POA. Questions invited. The patient/parents/legal guardian/POA seems to understand and agrees to proceed with anesthesia plan. Reviewed the physical assessment, medical history, allergy history and patient home medications list prior to surgery/procedure/anesthetic and documented any changes. Performed airway and anesthesia risk assessments. Anesthesia Type Anesthesia Type: MAC History Source History Obtained from:: Patient and Chart Anesthesia Focused Assessment* Temperature: 97.5 F Pulse Rate: 69 Blood Pressure: 114/52 Respiratory Rate: 17 Pulse Ox: 100 Oxygen Delivery Method: Room Air Airway Assessment Mouth opens: >3 cm Mallampati Score: III Teeth Condition: Caps/Crowns (Patient has couple crowns. They are tight.) Neck Range of motion (ROM): Full ROM Focused Labs Anesthesia Preop lab: CBC WBC 8.5 K/mm3 (4.4-11.0) 08/09/22 20:55 08/09/22 RBC 3.75 M/mm3 (4.2-5.4) L 08/09/22 20:55 08/09/22 Hgb 11.5 g/dL (12.0-15.0) L 08/09/22 20:55 08/09/22 Hct 34.2 % (37-47) L 08/09/22 20:55 08/09/22 Plt Count 271 K/mm3 (150-450) 08/09/22 20:55 08/09/22 CHEMISTRY Potassium 3.4 mmol/L (3.5-5.1) L 01/09/18 11:10 01/09/18 Sodium 136 mmol/L (136-145) 01/09/18 11:10 01/09/18 BUN 7 mg/dL (7-18) 01/09/18 11:10 01/09/18 Creatinine 0.84 mg/dL (0.55-1.02) 01/09/18 11:10 01/09/18 Glucose 109 mg/dL (74-106) H 01/09/18 11:10 01/09/18 TSH 1.34 uIU/mL (0.358-3.74) 03/17/18 13:40 03/17/18 COAG Urine Test Negative Negative 01/11/25 11:30 01/11/25 Pre-Assessment Diagnosis/Proposed Procedure Planned Operative Procedure(s): Colonoscopy Anesthesia History Anesthesia History - data collection associate: Anesthesia History - data collection associate Hx Hospitalization No 01/05/25 11:41 Any Problems With Anesthesia No 01/05/25 11:41 Cholinesterase deficiency No 01/05/25 11:41 You/Your Family Experience No 01/05/25 11:41 fever (hyperthermia) with Relationship Recent Exposure to Contagious No 01/11/25 11:46 Disease Does patient have nerve No 01/05/25 11:41 stimulator Patient instructed to have device shut off --Does patient have Pacemaker No 01/11/25 11:46 or ICD? When Was Last Pacemaker Check QUESTION #4 FULL TEXT: You/Your Family Experience fever (hyperthermia) with Anesthesia Last Oral Intake Last Oral intake: Last Oral Intake NPO since 08:00 01/11/25 11:46 Meds taken in AM with sips of No 01/11/25 11:46 water? Meds patient instructed to take am of surgery Any additional information?: Yes NPO since: 09:00 (Patient finished her prep at 9 AM.) PONV PONV - data collection associate: PONV - data collection associate Female Yes 01/05/25 11:41 HX of Motion Sickness No 01/05/25 11:41 HX of N/V After Surgery No 01/05/25 11:41 Non-Smoker Yes 01/05/25 11:41 Duration of Surgery greater No 01/05/25 11:41 than 60 minutes Number of Risk Factors 2 01/05/25 11:41 PONV Score Moderate Risk 01/05/25 11:41 Height & Weight Height & Weight: Anesthesia: Height & Weight Height 5 ft 5 in 01/11/25 11:46 Weight: 69 kg 01/11/25 11:46 Body Mass Index (BMI) 25.3 01/11/25 11:46 Respiratory Assessment Respiratory Assessment - data collection associate: Respiratory Tract Infection Hx - data collection associate Hx Respiratory Tract Infection No 01/05/25 11:41 STOP Sleep Apnea STOP Sleep Apnea - data collection associate: STOP Sleep Apnea - data collection associate Hx Hypertension No 01/05/25 11:41 Hx Sleep Apnea No 01/05/25 11:41 CPAP BIPAP Do you snore loudly (louder No 01/05/25 11:41 than talking or can be heard Do you often feel tired/ No 01/05/25 11:41 fatigued/ sleepy during daytime? Has anyone observed you stop No 01/05/25 11:41 breathing during sleep? STOP Results Negative 01/05/25 11:41 QUESTION #5 FULL TEXT : Do you snore loudly (louder than talking or can be heard through closed doors)? Tobacco Use History Tobacco Use History - data collection associate: Tobacco Use History - data collection associate Tobacco Use Smoking Status Never smoker 01/05/25 11:41 Hx Tobacco Use No 01/05/25 11:41 Years Smoking Packs Smoked per Day Smoking Cessation Date was within the last 15 years Hx Smoking Cessation Date Hx Smoking Cessation Counseling Hematologic Medial History Hematologic Hx - data collection associate: Hematologic Medical Hx - hopper filler Hx of Blood Transfusion No 01/05/25 11:41 Hx of Transfusion in last 3 No 01/05/25 11:41 Months Date of Last Transfusion (if within last 3 months) Ever experience any problems No 01/05/25 11:41 with transfusion(s)? Specify any problems Hx of Preganancy in last 3 No 01/05/25 11:41 Months Nurse Filling Out Transfusion VCHRISTIN 01/05/25 11:41 & Questions: Date: 01/05/25 01/05/25 11:41 Time: 11:42 01/05/25 11:41 Patient unable to answer at this time (ie. confused, unrespo /Reproduction History /Reproductive History - data collection associate: /Reproductive Hx- data collection associate Hx Now No 01/05/25 11:41 Gestational Age (in weeks): EDC: Hx Hx Para Hx Section SAB No 01/05/25 11:41 Active Medications Active Medications: Current Medications Generic Name Dose Route Start Last Admin Trade Name Freq PRN Reason Stop Dose Admin Lactated Ringer's 1,000 mls @ 15 mls/hr 01/11/25 11:30 01/11/25 11:50 IV 15 mls/hr .Q48H CLAUDIA Administration PFSH Medical History Non-smoker Anal fissure Ovarian cyst rupture No significant past medical history Home Medications ?Medication ?Instructions ?Recorded ?Last Taken ?Type drospirenone 3 mg-ethinyl 1 tab PO QDAY #84 tabs 10/21/24 01/10/25 Rx estradiol 0.02 mg tablet (GIAN (28)) Diltiazem 2% / Lidocaine 5% #1 ea 11/02/24 Unknown Rx ointment (compound) (Diltiazem 2%/Lidocaine 5% ointment (compound)) docusate sodium 100 mg capsule 100 mg PO BID 11/15/24 01/10/25 History (Colace) multivitamin 1 tab PO QDAY 11/15/24 01/10/25 History polyethylene glycol 3350 17 4 g PO QDAY 11/15/24 01/10/25 History gram/dose oral powder (Miralax) Lactobacillus acidophilus 10 100 mmu cells PO DAILY 01/05/25 01/10/25 History billion cell capsule (NewFlora) magnesium gluconate 27 mg 27 mg PO DAILY 01/05/25 01/10/25 History magnesium (500 mg) tablet (Mag-G) Diltiazem 10mg/Lidocaine 50mg [address] BID #30 supp 01/06/25 Unknown Rx Suppository 30 supp suppository Allergy/AdvReac Type Severity Reaction Status Date / Time No Known Allergies Allergy Verified 01/11/25 11:41 Family History Father Cancer liver Grandmother Breast cancer Surgical History No significant past surgical history Social History adopted: No housing: house number of children: 3 pets and animals: Yes history of recent travel: No sexually active: Yes Smoking Status: Never smoker second hand exposure: No alcohol intake: never substance use type: does not use caffeine: No what type of physical activity do you participate in: none seatbelt use: always do you feel safe at home: Yes 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
--- NOTE | 2025-01-11 12:30 | COLBX_PTH ---
PATIENT: AUDRA SALTER LOC: EN U#:[id number] AGE/SX: 34/F ROOM: RE01/11/[address]: Dr. Misael Young DO : 1990 BED: DIS: 01/11/2025 SPEC #: [id number] RECD: 01/12/25 09:39 STATUS: RHAEL REMario #: [id number] [place]: 01/11/25 12:[address]: Misael Young DEPT: SURGICAL PATHOLOGY RECD BY: Augustine Calderon ENTERED: 01/12/25 10:47 SP TYPE: COLON BX PRATIMA DR: Dr. Sultana Shore MD Tissues: A - Ileum, NOS Procedures: Surgery Specimen Level IV HEADER OPERATION: Colonoscopy with biopsy PRE-OP DIAGNOSIS: Rectal bleeding, rectal pain, chronic constipation TISSUE SUBMITTED: A- Terminal ileum biopsy MICROSCOPIC DIAGNOSIS A. Small bowel, terminal ileum, biopsy: * Small bowel mucosa with no pathologic change MICROSCOPIC DESCRIPTION Slides are reviewed. GROSS DESCRIPTION A. Received in formalin in a container labeled with the patient's name, date of , and terminal ileum biopsy are 2 healy-pink strips of mucosal tissue measuring 0.5 x 0.2 x 0.1 cm and 0.6 x 0.2 x 0.2 cm. Submitted in toto in A1. B 01-12-2025 CPT:87809
--- NOTE | 2025-01-11 12:48 | HP.PCM_ITS ---
[facility] - General General Date of Admission: 01/11/25 Date of Service: 01/11/25 Chief Complaint: rectal bleeding HPI Narrative AUDRA SALTER, is a 34 F who presents for complaints of constipation. Recent OV for anal fissure w/ Dr. Neumann. She states that she had been on a carnivore diet with her and then noted very painful BMs and blood while wiping. She reports taking Miralax daily, up to BID, and diltiazem/lidocaine cream was switched to rectal suppositories with improved effect, she is to use for few more weeks and see Dr. Soni for possible lateral internal sphincterotomy. She states that she's taking a pre/probiotic, has had back to back enemas in the ER(visit for severe rectal pain) that took over an hour for results to happen, and has tried mineral oil 3 nights in a row with no change in bowel routine. She has been told that she's taking too much dietary fiber in now, despite drinking over 60oz of water daily. She avoids gluten as she just feels better without it. She expresses concerns over losing her progress in healing her anal fissure with her constipation. She denies difficulty chewing and swallowing, heartburn, reflux, nausea, emesis, abdominal pain, diarrhea, hematochezia, and melena. She reports that the difficulty with BMs started after the of her second child and really became a problem after the carnivore diet. She states that all 3 of her pregnancies and vaginal deliveries were uncomplicated. [facility] Medical History Non-smoker Anal fissure Ovarian cyst rupture No significant past medical history Home Medications ?Medication ?Instructions ?Recorded ?Last Taken ?Type drospirenone 3 mg-ethinyl 1 tab PO QDAY #84 tabs 10/2101/10/25 Rx estradiol 0.02 mg tablet (GIAN (28)) Diltiazem 2% / Lidocaine 5% #1 ea 11/02/24 Unknown Rx ointment (compound) (Diltiazem 2%/Lidocaine 5% ointment (compound)) docusate sodium 100 mg capsule 100 mg PO BID 11/15/24 01/10/25 History (Colace) multivitamin 1 tab PO QDAY 11/15/2401/10 History polyethylene glycol 3350 17 4 g PO QDAY 11/15/2401/10 History gram/dose oral powder (Miralax) Lactobacillus acidophilus 10 100 mmu cells PO DAILY 01/10/25 History billion cell capsule (NewFlora) magnesium gluconate 27 mg 27 mg PO DAILY 01/05/25 05/0 01/30 History magnesium (500 mg) tablet (Mag-G) Diltiazem 10mg/Lidocaine 50mg 1 supp [place] BID #30 supp 0 01/06/25 Unknown Rx Suppository 30 supp suppository Allergy/AdvReac Type Severity Reaction Status Date / Time No Known Allergies Allergy Verified 01/11/25 11:41 Family History Father Cancer liver Grandmother Breast cancer Surgical History No significant past surgical history Social History adopted: No housing: house number of children: 3 pets and animals: Yes history of recent travel: No sexually active: Yes Smoking Status: Never smoker second hand exposure: No alcohol intake: never substance use type: does not use caffeine: No what type of physical activity do you participate in: none seatbelt use: always do you feel safe at home: Yes 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 Constitutional Constitutional: Denies fatigue, fever(s), poor appetite, weight gain or weight loss Gastrointestinal Gastrointestinal: Denies belching, bloating, change in bowel habits, change in stool character, chewing difficulty, coffee ground emesis, constipation, cramping, diarrhea, dyspepsia, dysphagia, early satiety, excessive flatus, fecal incontinence, heartburn, hematemesis, hematochezia, hemorrhoids, loose stools, melena, nausea, odynophagia, rectal bleeding, tenesmus, vomiting or weight changes Vital Signs Vital Signs Vital Signs: 01/11/25 11:46 01/11/25 11:46 01/11/25 12:25 Temperature 97.5 F L 97.5 F L Temperature Source Temporal Pulse Rate 69 69 Respiratory Rate 17 17 Respiratory Pattern Normal Blood Pressure 114/52 L 114/52 L Blood Pressure Mean 72 Blood Pressure Source Monitor Blood Pressure Position Semi-Fowlers Blood Pressure Location Left Arm Pulse Ox 100 100 Oxygen Delivery Method Room Air Room Air Weight Weight: 152 lb 1.903 oz Body Mass Index (BMI) 25.3 Physical Exam Const alert, oriented x3, no apparent distress and healthy appearing General Appearance: cooperative GI normal to inspection, nondistended, normoactive bowel sounds, soft to palpation, non-tender and non-distended Percussion: normal to percussion Rectal Exam: deferred Results Lab / Micro Data Labs: Laboratory Results - last 24 hr 01/11/25 11:30: Urine Test Negative Assessment & Plan Assessment/Plan (1) Rectal bleeding: (2) Rectal pain: (3) Chronic constipation: PLAN: Assessment and Plan Assessment and Plan (1) Chronic constipation: Status: Chronic Comment: supportive care discussed (2) Anal fissure: Status: Acute Plan AUDRA SALTER, is a 34 F who presents to the office today for establishment with [facility] for complaints of constipation. Differential diagnoses include: pelvic floor dysfunction, CIC, IBS-C. Discussed care plan with her. * Continue Miralax daily to BID * recommended dietary water-soluble fiber and psyllium husk daily. * continue 60oz+ water intake * sitz marker study when anal fissure has healed vs doing while on Miralax; KUB on days 3 and 5 after taking sitz marker capsule * consider colonoscopy
--- NOTE | 2025-01-11 13:45 | PCM.POST.ANE ---
Anesthesia: Postop Eval I Current Vital Signs Temperature: 97.3 F Pulse Rate: 73 Blood Pressure: 95/57 Respiratory Rate: 16 Pulse Ox: 100 Oxygen Delivery Method: Room Air Assessment Airway patent: Yes Spontaneous unlabored respirations: Yes Mental status: Awake nausea: No Vomiting: No Anesthesia Complication: No Fluid Hydration Crystalloid volume administer (ml): 600 Total IV fluid infused: 600 Progress Note Anesthesia document: Postop Eval 1 completed: Yes
--- NOTE | 2025-01-11 13:47 | OP.CCLET_ITS ---
01/11/2025 Sultana Shore Re : Colonoscopy procedure for Madison Joseph Dear Silviano This procedure was performed on Saturday, January 11, 2025. My impressions and recommendations are as follows: Impressions : - Tortuous colon. - The examination was otherwise normal on direct and retroflexion views. - Congested mucosa in the terminal ileum. Biopsied. Recommendations : - Discharge patient to home. - Resume previous diet. - Continue present medications. - Await pathology results. - Repeat colonoscopy in 10 years for screening purposes. My findings are described in the full procedure note, which is enclosed. If I can be of further assistance, please feel free to contact me at . Sincerely, Misael Young, 01/11/2025 1:47:01 PM This report has been signed electronically.
--- NOTE | 2025-01-11 13:47 | OP.COLON_ITS ---
Patient Name: Madison Joseph Procedure Date: 01/11/2025 12:10 PM Date of : 1990 Age: 34 Procedure: Colonoscopy Indications: Generalized abdominal pain, Clinically significant diarrhea of unexplained origin, Change in bowel habits, Change in stool caliber, Constipation Providers: Misael Young DO Referring MD: Sultana Shore Medicines: Monitored Anesthesia Care Patient Profile: This is a 34 year old female. Refer to note in patient chart for documentation of history and physical. Last Colonoscopy: none. The patient's first colonoscopy is today. Complications: No immediate complications. Procedure: Pre-Anesthesia Assessment: - Prior to the procedure, a History and Physical was performed, and patient medications and allergies were reviewed. The patient is competent. The risks and benefits of the procedure and the sedation options and risks were discussed with the patient. All questions were answered and informed consent was obtained. Patient identification and proposed procedure were verified by the physician in the pre-procedure area. Mental Status Examination: alert and oriented. Airway Examination: normal oropharyngeal airway and neck mobility. Respiratory Examination: clear to auscultation. CV Examination: normal. Prophylactic Antibiotics: The patient does not require prophylactic antibiotics. Prior Anticoagulants: The patient has taken no anticoagulant or antiplatelet agents. ASA Grade Assessment: II - A patient with mild systemic disease. After reviewing the risks and benefits, the patient was deemed in satisfactory condition to undergo the procedure. The anesthesia plan was to use monitored anesthesia care (MAC). Immediately prior to administration of medications, the patient was re-assessed for adequacy to receive sedatives. The heart rate, respiratory rate, oxygen saturations, blood pressure, adequacy of pulmonary ventilation, and response to care were monitored throughout the procedure. The physical status of the patient was re-assessed after the procedure. After I obtained informed consent, the scope was passed under direct vision. Throughout the procedure, the patient's blood pressure, pulse, and oxygen saturations were monitored continuously. The colonoscope was introduced through the anus and advanced to the terminal ileum. The colonoscopy was performed without difficulty. The patient tolerated the procedure well. The quality of the bowel preparation was adequate. The terminal ileum, ileocecal valve, appendiceal orifice, and rectum were photographed. Scope In: 1:11:13 PM Scope Withdrawal Time 0 hours 8 minutes 56 seconds Scope Out: 1:36:00 PM Total Procedure Duration Time 0 hours 24 minutes 47 seconds Findings: The perianal and digital rectal examinations were normal. The recto-sigmoid colon and splenic flexure were significantly tortuous. The exam was otherwise without abnormality on direct and retroflexion views. A localized area of the terminal ileum was congested. Biopsies were taken with a cold forceps for histology. Verification of patient identification for the specimen was done. Estimated blood loss was minimal. A 5 mm anal fissure was found in the anal canal. Impression: - Tortuous colon. - The examination was otherwise normal on direct and retroflexion views. - Congested mucosa in the terminal ileum. Biopsied. Recommendation: - Discharge patient to home. - Resume previous diet. - Continue present medications. - Await pathology results. - Repeat colonoscopy in 10 years for screening purposes. Procedure Code(s): --- Professional --- 41639, Colonoscopy, flexible; with biopsy, single or multiple CPT copyright 2021 [employer]. All rights reserved. The codes documented in this report are preliminary and upon surgical coder review may be revised to meet current compliance requirements. Misael Young DO 01/11/2025 1:47:01 PM This report has been signed electronically. Number of Addenda: 0 Note Initiated On: 01/11/2025 12:10 PM
--- NOTE | 2025-01-11 15:21 | PCM.POSTANE2 ---
Anesthesia Postop Eval I Sum Postop Eval Completion status Anesthesia document: Postop Eval 1 completed: Yes Anesthesia Postop Eval I Summary Anesthesia Postop Eval I Summary: Anesthesia Postop Eval I: Assessment Summary Airway patent Yes 01/11/25 13:46 [email or web address] Spontaneous unlabored Yes 01/11/25 13:46 [email or web address] respirations Mental status Awake 01/11/25 13:46 [email or web address] nausea No 01/11/25 13:46 [email or web address] Vomiting No 01/11/25 13:46 [email or web address] Anesthesia Postop Eval I: Fluid Summary Crystalloid volume administer 600 01/11/25 13:46 [email or web address] (ml) Colloids volume administered ( ml) Blood Product volume administered (ml) Total IV fluid infused 600 01/11/25 13:46 [email or web address] Anesthesia Postop Eval I: Summary Notes Anesthesia Complication No 01/11/25 13:46 [email or web address] Anesthesia Complication Comment: Post-operative progress note Anesthesia: Postop Eval II Evaluation Mental status: Awake and Calm Pain Level: 0 nausea: No Vomiting: No Complications Anesthesia Complication: No
[2025-01-15 09:08] LABS: Anti-Centromere B Ab <0.2 AI (0.0-0.9); Anti-Chromatin <0.2 AI (0.0-0.9); Anti-Jo <0.2 AI (0.0-0.9); Anti-Scleroderma-70 AB <0.2 AI (0.0-0.9); Anti-dsDNA Ab 1 IU/mL (0-9); Beef <0.10 kU/L (Class 0); Chocolate <0.10 kU/L (Class 0); Codfish <0.10 kU/L (Class 0); Corn <0.10 kU/L (Class 0); Egg, Whole <0.10 kU/L (Class 0); Milk (Cow) <0.10 kU/L (Class 0); Mussels <0.10 kU/L (Class 0); Peanut <0.10 kU/L (Class 0); Pork <0.10 kU/L (Class 0); RNP Ab <0.2 AI (0.0-0.9); SJOGREN'S Anti-SS-A test < 0.2 AI (0.0-0.9); SJOGREN'S Anti-SS-B test < 0.2 AI (0.0-0.9); Salmon <0.10 kU/L (Class 0); Shrimp <0.10 kU/L (Class 0); Smith Ab <0.2 AI (0.0-0.9); Soybean <0.10 kU/L (Class 0); Tuna <0.10 kU/L (Class 0); Wheat <0.10 kU/L (Class 0)
[2025-01-17 15:08] LABS: ACCA 19 units (0-90); ALCA 3 units (0-60); AMCA 18 units (0-100); Albumin 3.2 g/dL (2.9-4.4); Alpha-1-Globulins 0.3 g/dL (0.0-0.4); Cytoplasmic Ab (C-ANCA) <1:20 titer (Neg:<1:20); Gamma Globulin 1.1 g/dL (0.4-1.8); IgG, Quant 1114 mg/dL (586-1602); Immunoglobulin A 161 mg/dL (87-352); Immunoglobulin E 47 IU/mL (6-495); Immunoglobulin G, Subclass 1 562 mg/dL (248-810); Immunoglobulin G, Subclass 2 447 mg/dL (130-555); Immunoglobulin G, Subclass 3 29 mg/dL (15-102); Immunoglobulin G, Subclass 4 13 mg/dL (2-96); Immunoglobulin M 89 mg/dL (26-217); PROEL- TOTAL PROTEIN 6.8 g/dL (6.0-8.5); Perinuclear Ab (P-ANCA) <1:20 titer (Neg:<1:20); gASCA 11 units (0-50)
== END 2025-01-11 14:23 | disposition home or self-care (01) ==
LOC: EN 11:22 → AC 11:23
PROVIDERS: Anesthesiology; PCP Family Medicine; Referring Provider Family Medicine; Visit Provider Internal Medicine Gastroenterology
PROC: 0DJD8ZZ Inspection of Lower Intestinal Tract, Via Natural or Artificial Opening Endoscopic (ICD-10-PCS; CPT 45378; principal; 2025-01-11 12:25)
DX: K60.2 Anal fissure, unspecified (principal); K62.5 Hemorrhage of anus and rectum; R10.84 Generalized abdominal pain; R19.7 Diarrhea, unspecified; K59.09 Other constipation; Q43.8 Other specified congenital malformations of intestine
CPT/HCPCS: 45380; 36415; 81025; 82784; 82785; 82787; 83516; 84165; 86003; 86005; 86036; 86037; 86225; 86235; 86334; 86671; 88305; J2405